=== PATIENT | male | born 1970 | race African-American/Black ===

== ENCOUNTER 2018-07-09 16:44 | Inpatient (IN) | payer SELFPAY ==
--- NOTE | 2018-07-09 17:12 | ER Document Report ---
ED Medical Screen (RME) - General Chief Complaint: Back Pain Stated Complaint: BACK PAIN Time Seen by Provider: 07/09/18 17:04 Mode of Arrival: Wheelchair Information source: Patient Notes: Patient presents emergency department with complaints of severe chest pain radiating to his back. Reports is on the right side of his chest denies radiating to arms or neck. Denies nausea vomiting fever. Denies trauma. Patient reports that this started a few weeks ago he wake up and have difficulty breathing. He reports on the way to work yesterday he had that sharp chest pain that radiated to his back. Patient does smoke marijuana and does cocaine. Reports he did cocaine yesterday to relieve him of the pain. Consulted with Dr. Lion regarding patient's blood pressure. She reports she will care for the patient no blood pressure medication given at this time. I have greeted and performed a rapid initial assessment of this patient. A comprehensive ED assessment and evaluation of the patient, analysis of test results and completion of the medical decision making process will be conducted by additional ED providers. TRAVEL OUTSIDE OF THE [place] IN LAST 30 DAYS: No - Related Data Allergies/Adverse Reactions: No Known Allergies Allergy (Verified 07/09/18 16:47) Past Medical History - Social History Chew tobacco use (# tins/day): No Frequency of alcohol use: Heavy Drug Abuse: Cocaine, Marijuana Family history: Hypertension - Past Medical History Cardiac Medical History: Reports: Hx Hypertension Renal/ Medical History: Denies: Hx Peritoneal Dialysis Physical Exam - Vital signs Vitals: Temp Pulse Resp BP Pulse Ox 98.0 F 97 38 H 227/135 H 94 07/09/18 16:50 07/09/18 16:50 07/09/18 16:50 07/09/18 16:50 07/09/18 16:50 Course - Vital Signs Vital signs: Temp Pulse Resp BP Pulse Ox 98.0 F 97 38 H 227/135 H 94 07/09/18 16:50 07/09/18 16:50 07/09/18 16:50 07/09/18 16:50 07/09/18 16:50 - Laboratory Result Diagrams: 07/09/18 18:45 07/09/18 18:00 Laboratory results interpreted by me: 07/09/18 07/09/18 07/09/18 18:00 18:00 18:45 WBC 11.8 H RBC 4.18 L Hgb 12.3 L Hct 37.3 L RDW 14.7 H Seg Neutrophils % 78.1 H Lymphocytes % 10.2 L Absolute Neutrophils 9.2 H D-Dimer 1.87 H Sodium 136.6 L Potassium 3.4 L Glucose 113 H
--- NOTE | 2018-07-09 18:02 | RADIOLOGY REPORT (SQ) ---
EXAM DESCRIPTION: CHEST 2 VIEWS COMPLETED DATE/TIME: 07/09/2018 5:44 pm REASON FOR STUDY: chest pain radiating to back COMPARISON: 04/19/2009 EXAM PARAMETERS: NUMBER OF VIEWS: two views TECHNIQUE: Digital Frontal and Lateral radiographic views of the chest acquired. RADIATION DOSE: NA LIMITATIONS: none FINDINGS: LUNGS AND PLEURA: Ill-defined opacification in the retrocardiac area on the left. Pulmona ry vascular congestion. Cannot exclude mild pulmonary edema. MEDIASTINUM AND HILAR STRUCTURES: No masses or contour abnormalities. HEART AND VASCULAR STRUCTURES: Cardiomegaly. BONES: No acute findings. HARDWARE: None in the chest. OTHER: No other significant finding. IMPRESSION: Cardiomegaly with mild pulmonary edema. Cannot exclude limited left lower lobe pneumoni a. TECHNICAL DOCUMENTATION: JOB ID: [id number] [employer]- All Rights Reserved Reading location - IP/workstation name: [email or web address]
[2018-07-09] MEDS ORDERED: IPRATROPIUM/ALBUTEROL 0.5-2.5 MG/3 ML AMPUL NEB ONE (18:09)
[2018-07-09] MEDS ORDERED: MORPHINE SULFATE 10 MG/ML INJ IV ONE ×2 (18:10→21:37)
[2018-07-09] MEDS ORDERED: ONDANSETRON HCL INJ/PF 4 MG/2 ML SDV IV ONE (18:10)
[2018-07-09] MEDS ORDERED: METOPROLOL TARTRATE PF/INJ 5 MG/5 ML SDV IV ONE (18:13)
[2018-07-09] MEDS ORDERED: RINGERS SOLUTION,LACTATED 1,000 ML IV ONE (18:13)
[2018-07-09] MEDS ORDERED: LORAZEPAM INJ 2 MG/1 ML VIAL IV ONE ×2 (18:14→18:58)
--- NOTE | 2018-07-09 18:15 | ER Document Report ---
ED General - General Chief Complaint: Back Pain Stated Complaint: BACK PAIN Time Seen by Provider: 07/09/18 17:04 Mode of Arrival: Wheelchair Information source: Patient, [facility] Records Notes: 48-year-old male with hypertension who is noncompliant with his medications presents with sudden onset of right-sided flank pain that occurred yesterday after the patient had a coughing episode. Patient states since that time he has had a sharp pressure-like right-sided flank and right sided back pain. Pain is worse with sitting up, movement and with coughing and deep breathing. Patient denies any recent illness. He does admit to tobacco use, cocaine use yesterday and marijuana use. Patient denies prior similar symptoms, leg swelling, history of PE, DVT. TRAVEL OUTSIDE OF THE [place] IN LAST 30 DAYS: No - HPI Onset: Yesterday Onset/Duration: Sudden Quality of pain: Pressure, Stabbing Severity: Moderate Pain Level: 3 Associated symptoms: Body/muscle aches, Chest pain, Nonproductive cough, Hurts to breath, Shortness of breath, Sweating. denies: Earache, Headache, Leg swelling, Nausea, Vomiting Exacerbated by: Movement, Deep breathing Relieved by: Remaining still Similar symptoms previously: Yes Recently seen / treated by doctor: No - Related Data Allergies/Adverse Reactions: No Known Allergies Allergy (Verified 07/09/18 16:47) Past Medical History - General Information source: Patient - Social History Smoking Status: Current Every Day Smoker Cigarette use (# per day): Yes - 10 Chew tobacco use (# tins/day): No Smoking Education Provided: Yes - Smoking cessation counseling was provided for 4 minutes at the bedside Frequency of alcohol use: Heavy Drug Abuse: Cocaine, Marijuana Lives with: Spouse/Significant other Family History: Reviewed & Not Pertinent Patient has suicidal ideation: No Patient has homicidal ideation: No - Past Medical History Cardiac Medical History: Reports: Hx Hypertension Renal/ Medical History: Denies: Hx Peritoneal Dialysis Review of Systems - Review of Systems Notes: REVIEW OF SYSTEMS: CONSTITUTIONAL : Denies fever, chills, or sweats. Denies recent illness. Denies weight loss, recent hospitalizations. EENT: Denies visual changes, eye pain. Denies sore throat, oral lesions, difficulty swallowing. CARDIOVASCULAR: Denies palpitations. Denies lower extremity edema. RESPIRATORY: Denies cough. Denies wheezing. GASTROINTESTINAL: Denies abdominal pain or distention. Denies nausea, vomiting, or diarrhea. Denies blood in vomitus, stools, or per rectum. Denies black, tarry stools. Denies constipation. GENITOURINARY: Denies difficulty urinating, painful urination, frequency, blood in urine, testicular pain or penile discharge. MUSCULOSKELETAL: Denies neck pain or stiffness. Denies joint pain or swelling. SKIN: Denies rash, lesions or sores. HEMATOLOGIC : Denies easy bruising or bleeding. LYMPHATIC: Denies swollen glands. NEUROLOGICAL: Denies confusion or altered mental status. Denies loss of consciousness. Denies dizziness or lightheadedness. Denies headache. Denies weakness or paralysis. Denies problems difficulty with ambulation, slurred speech. Denies sensory loss, numbness, or tingling. Denies seizures. PSYCHIATRIC: Denies anxiety or stress. Denies depression, suicidal ideation, or Physical Exam - Vital signs Vitals: Temp Pulse Resp BP Pulse Ox 98.0 F 97 38 H 227/135 H 94 07/09/18 16:50 07/09/18 16:50 07/09/18 16:50 07/09/18 16:50 07/09/18 16:50 - Notes Notes: PHYSICAL EXAMINATION: GENERAL: Well-appearing, well-nourished and in no acute distress. HEAD: Atraumatic, normocephalic. EYES: Pupils equal round and reactive to light, extraocular movements intact, sclera anicteric, conjunctiva are normal. ENT: Nares patent, oropharynx clear without exudates. Moist mucous membranes. NECK: Normal range of motion, supple without lymphadenopathy LUNGS: Breath sounds clear to auscultation bilaterally and equal. No wheezes rales or rhonchi. HEART: Regular rate and rhythm without murmurs ABDOMEN: Soft, nontender, nondistended abdomen. No guarding, no rebound. No masses appreciated. Musculoskeletal: Normal range of motion, no pitting or edema. No cyanosis. NEUROLOGICAL: Cranial nerves grossly intact. Normal speech, normal gait. Normal sensory, motor exams PSYCH: Normal mood, normal affect. SKIN: Warm, Dry, normal turgor, no rashes or lesions noted. Course - Re-evaluation Re-evalutation: Laboratory 07/09/18 07/09/18 07/09/18 18:00 18:00 18:00 WBC Cancelled RBC Cancelled Hgb Cancelled Hct Cancelled MCV Cancelled MCH Cancelled MCHC Cancelled RDW Cancelled Plt Count Cancelled Seg Neutrophils % Cancelled Lymphocytes % Cancelled Monocytes % Cancelled Eosinophils % Cancelled Basophils % Cancelled Absolute Neutrophils Cancelled Absolute Lymphocytes Cancelled Absolute Monocytes Cancelled Absolute Eosinophils Cancelled Absolute Basophils Cancelled Platelet Estimate Cancelled D-Dimer Sodium 136.6 L Potassium 3.4 L Chloride 103 Carbon Dioxide 25 Anion Gap 9 BUN 15 Creatinine 0.99 Est GFR ( Amer) > 60 Est GFR (Non-Af Amer) > 60 Glucose 113 H Calcium 9.5 Total Bilirubin 0.6 Direct Bilirubin 0.3 Neonat Total Bilirubin Not Reportable Neonat Direct Bilirubin Not Reportable Neonat Indirect Bili Not Reportable AST 33 ALT 30 Alkaline Phosphatase 107 Creatine Kinase 167 CK-MB (CK-2) 0.75 Troponin I 0.037 Total Protein 7.4 Albumin 3.9 Urine Opiates Screen Urine Methadone Screen Ur Barbiturates Screen Ur Phencyclidine Scrn Ur Amphetamines Screen U Benzodiazepines Scrn Urine Cocaine Screen U Marijuana (THC) Screen Slides for Path Review Cancelled 07/09/18 07/09/18 07/09/18 18:00 18:45 18:45 WBC 11.8 H RBC 4.18 L Hgb 12.3 L Hct 37.3 L MCV 89 MCH 29.5 MCHC 33.0 RDW 14.7 H Plt Count 307 Seg Neutrophils % 78.1 H Lymphocytes % 10.2 L Monocytes % 10.9 Eosinophils % 0.5 Basophils % 0.3 Absolute Neutrophils 9.2 H Absolute Lymphocytes 1.2 Absolute Monocytes 1.3 Absolute Eosinophils 0.1 Absolute Basophils 0.0 Platelet Estimate D-Dimer 1.87 H Sodium Potassium Chloride Carbon Dioxide Anion Gap BUN Creatinine Est GFR ( Amer) Est GFR (Non-Af Amer) Glucose Calcium Total Bilirubin Direct Bilirubin Neonat Total Bilirubin Neonat Direct Bilirubin Neonat Indirect Bili AST ALT Alkaline Phosphatase Creatine Kinase CK-MB (CK-2) Troponin I Total Protein Albumin Urine Opiates Screen NEGATIVE Urine Methadone Screen NEGATIVE Ur Barbiturates Screen NEGATIVE Ur Phencyclidine Scrn NEGATIVE Ur Amphetamines Screen NEGATIVE U Benzodiazepines Scrn NEGATIVE Urine Cocaine Screen UNCONFIRMED POSITIVE U Marijuana (THC) Screen UNCONFIRMED POSITIVE Slides for Path Review 07/09/18 20:40 WBC RBC Hgb Hct MCV MCH MCHC RDW Plt Count Seg Neutrophils % Lymphocytes % Monocytes % Eosinophils % Basophils % Absolute Neutrophils Absolute Lymphocytes Absolute Monocytes Absolute Eosinophils Absolute Basophils Platelet Estimate D-Dimer Sodium Potassium Chloride Carbon Dioxide Anion Gap BUN Creatinine Est GFR ( Amer) Est GFR (Non-Af Amer) Glucose Calcium Total Bilirubin Direct Bilirubin Neonat Total Bilirubin Neonat Direct Bilirubin Neonat Indirect Bili AST ALT Alkaline Phosphatase Creatine Kinase CK-MB (CK-2) Troponin I 0.038 Total Protein Albumin Urine Opiates Screen Urine Methadone Screen Ur Barbiturates Screen Ur Phencyclidine Scrn Ur Amphetamines Screen U Benzodiazepines Scrn Urine Cocaine Screen U Marijuana (THC) Screen Slides for Path Review Chest X-Ray 07/09/18 17:08 IMPRESSION: Cardiomegaly with mild pulmonary edema. Cannot exclude limited left lower lobe pneumonia. Chest/Abdomen CTA 07/09/18 20:07 IMPRESSION: 1. No acute pulmonary embolism. 2. Trace right pleural effusion with compressive atelectasis in the right lower lobe. 3. Cardiomegaly with small pericardial effusion. 07/09/18 22:34 48-year-old male presents with right-sided chest pain that started 1 day prior to arrival. Vital signs reviewed and patient has markedly elevated blood pressure. Patient does not appear toxic or dehydrated. He is in no acute distress. EKG was obtained which shows the patient be in sinus rhythm at a rate of 87. Left ventricular hypertrophy is present. Patient does have T wave inversions in leads to be 5, V6 and lead I. Patient does admit to recent cocaine use. Troponin is 0.037, delta troponin 0 0.038. CTA was obtained due to the patient's pain with inspiration, this showed no evidence of pulmonary embolism but did show a right pleural effusion and cardiomegaly with a small pericardial effusion. Patient did receive clonidine for his blood pressure with minimal improvement. Patient did receive Ativan, morphine for pain. On reevaluation he states the pain has improved but is still present. He is agreeable with admission. Patient will be admitted by Dr. Evans for observation on telemetry. - Vital Signs Vital signs: Temp Pulse Resp BP Pulse Ox 98.0 F 97 39 H 200/119 H 89 L 07/09/18 16:50 07/09/18 16:50 07/09/18 21:20 07/09/18 20:30 07/09/18 21:20 - Laboratory Result Diagrams: 07/09/18 18:45 07/09/18 18:00 Laboratory results interpreted by me: 07/09/18 07/09/18 07/09/18 18:00 18:00 18:45 WBC 11.8 H RBC 4.18 L Hgb 12.3 L Hct 37.3 L RDW 14.7 H Seg Neutrophils % 78.1 H Lymphocytes % 10.2 L Absolute Neutrophils 9.2 H D-Dimer 1.87 H Sodium 136.6 L Potassium 3.4 L Glucose 113 H - Diagnostic Test Radiology reviewed: Image reviewed, Reports reviewed - EKG Interpretation by Me EKG shows normal: Sinus rhythm Voltage: Consistant with LVH - T wave inversion noted When compared to previous EKG there are: Previous EKG unavailable Critical Care Note - Critical Care Note Total time excluding time spent on procedures (mins): 35 - Minutes of critical care time spent in direct contact evaluating and reevaluating the patient, treating symptoms, reviewing labs and studies and speaking with family and consultants excluding any procedures Discharge - Discharge Clinical Impression: Pericardial effusion, Pleural effusion, Cocaine use, Marijuana use, Noncompliance with medication regimen Chest pain Qualifiers: Chest pain type: unspecified Qualified Code(s): R07.9 - Chest pain, unspecified Hypertension Qualifiers: Hypertension type: unspecified Qualified Code(s): I10 - Essential (primary) hypertension Condition: Good Disposition: ADMITTED OBSERVATION Admitting Provider: Nathan (Hospitalist) Unit Admitted: Telemetry
[2018-07-09 18:26] LABS: ALANINE AMINOTRANSFERASE 30 U/L (21-72); ALBUMIN 3.9 g/dL (3.5-5.0); ALKALINE PHOSPHATASE 107 U/L (38-126); ANION GAP 9 (5-19); ASPARTATE AMINO TRANSFERASE 33 U/L (17-59); BILIRUBIN,DIRECT 0.3 mg/dL (0.0-0.4); BILIRUBIN,TOTAL 0.6 mg/dL (0.2-1.3); BLOOD UREA NITROGEN 15 mg/dL (7-20); CALCIUM 9.5 mg/dL (8.4-10.2); CARBON DIOXIDE 25 mmol/L (22-30); CHLORIDE 103 mmol/L (98-107); CREATINE KINASE 167 U/L (55-170); GLUCOSE 113 mg/dL (75-110); POTASSIUM 3.4 mmol/L (3.6-5.0); SODIUM 136.6 mmol/L (137-145); TOTAL PROTEIN 7.4 g/dL (6.3-8.2)
[2018-07-09 18:38] LABS: CREATINE KINASE MB 0.75 ng/mL (<4.55)
[2018-07-09 18:40] LABS: TROPONIN I 0.037 ng/mL
[2018-07-09 19:05] LABS: ABSOLUTE EOSINOPHILS # (AUTO) 0.1 10^3/uL (0.0-0.6); ABSOLUTE LYMPHOCYTES (AUTO) 1.2 10^3/uL (0.5-4.7); ABSOLUTE MONOCYTES (AUTO) 1.3 10^3/uL (0.1-1.4); ABSOLUTE NEUT (AUTO) 9.2 10^3/uL (1.7-8.2); BASOPHILS % (AUTO) 0.3 % (0-2); EOSINOPHILS % (AUTO) 0.5 % (0-6); HEMATOCRIT 37.3 % (37.9-51.0); HEMOGLOBIN 12.3 g/dL (13.5-17.0); LYMPHOCYTES % (AUTO) 10.2 % (13-45); MEAN CORPUSCULAR HEMOGLOBIN 29.5 pg (27.0-33.4); MEAN CORPUSCULAR VOLUME 89 fl (80-97); MONOCYTES % (AUTO) 10.9 % (3-13); PLATELET COUNT 307 10^3/uL (150-450); RED BLOOD COUNT 4.18 10^6/uL (4.35-5.55); RED CELL DISTRIBUTION WIDTH 14.7 % (11.5-14.0); SEGMENTED NEUTROPHILS % (AUTO) 78.1 % (42-78); TOTAL CELLS COUNTED % (AUTO) 100 %; WHITE BLOOD COUNT 11.8 10^3/uL (4.0-10.5)
[2018-07-09 19:24] LABS: URINE AMPHETAMINES SCREEN NEGATIVE; URINE BARBITURATES SCREEN NEGATIVE; URINE BENZODIAZEPINES SCREEN NEGATIVE; URINE COCAINE SCREEN UNCONFIRMED POSITIVE; URINE MARIJUANA (THC) SCREEN UNCONFIRMED POSITIVE; URINE METHADONE SCREEN NEGATIVE; URINE PHENCYCLIDINE SCREEN NEGATIVE
[2018-07-09] MEDS ORDERED: CLONIDINE HCL 0.1 MG TABLET PO ONE (21:38)
--- NOTE | 2018-07-09 21:59 | RADIOLOGY REPORT (SQ) ---
CT CHEST ANGIOGRAPHY WITHOUT THEN WITH IV CONTRAST HISTORY: Shortness of breath. COMPARISON: None. TECHNIQUE: CT angiogram of the chest with IV contrast. 3-D MIP images were obtained in coronal and sagittal reconstructions. This exam was performed according to our departmental dose-optimization program, which includes automated exposure control, adjustment of the mA and/or kV according to patient size and/or use of iterative reconstruction technique. FINDINGS: No filling defects are identified in the pulmonary trunk, main left and right pulmonary arteries, or the segmental branches. No aortic aneurysm or dissection is seen. The thyroid gland is normal. No mediastinal, hilar, or axillary adenopathy is seen. The heart size is enlarged with a small pericardial effusion. There is a trace right pleural effusion with adjacent compressive atelectasis. There is also atelectasis/scarring at the left lung base. No pneumothorax is seen. The visualized upper abdomen demonstrates no acute findings. The osseous structures are intact. IMPRESSION: 1. No acute pulmonary embolism. 2. Trace right pleural effusion with compressive atelectasis in the right lower lobe. 3. Cardiomegaly with small pericardial effusion.
[2018-07-09] MEDS ORDERED: MAG HYDROX/AL HYDROX/SIMETH SUSP 30 ML UDCUP PO PRN (22:32)
--- NOTE | 2018-07-09 23:54 | EKG REPORT ---
SEVERITY:- ABNORMAL ECG - SINUS RHYTHM BELL, CONSIDER BIATRIAL ABNORMALITIES LEFT VENTRICULAR HYPERTROPHY ABNORMAL T, PROBABLE ISCHEMIA, ANT-LAT LEADS : Confirmed by: Gail Taylor 09-Jul-2018 23:53:31
--- NOTE | 2018-07-10 00:10 | PDOC H&P ---
History of Present Illness Admission Date/PCP: 07/09/18 22:47 Patient complains of: Chest pain History of Present Illness: HERACLIO HERRERA is a 48 year old male with past medical history of untreated hypertension, tobacco and alcohol dependence. Patient presents with 12 hours of sharp stabbing retrosternal chest pain radiating to the back associated with shortness of breath occurring moments after smoking crack cocaine. His symptoms of persisted prompting evaluation in the emergency room was found to have hypertensive urgency in the 200 systolic range, CT with small pericardial and pleural effusion. He receives clonidine, Ativan and referred to the hospitalist for admission. Patient denies current chest pain. Past Medical History Cardiac Medical History: Reports: Hypertension Psychiatric Medical History: Reports: Alcohol Dependency, Substance Abuse, Tobacco Dependency Social History Lives with: Spouse/Significant other Smoking Status: Current Every Day Smoker Frequency of Alcohol Use: Heavy - Minimum 48 ounces of malt liquor per day Drugs: Cocaine, Marijuana - Advance Directive Resuscitation Status: Full Code Family History Family History: CAD, Hypertension Parental Family History Reviewed: Yes Children Family History Reviewed: Yes Sibling(s) Family History Reviewed.: Yes Medication/Allergy Home Medications: Lisinopril/Hydrochlorothiazide [Lisinopril-Hctz 20-12.5 mg Tab] 1 each PO DAILY #60 tablet 04/28/13 Allergies/Adverse Reactions: No Known Allergies Allergy (Verified 07/09/18 16:47) Review of Systems Constitutional: ABSENT: chills, fever(s), headache(s), weight gain, weight loss Eyes: ABSENT: visual disturbances Ears: ABSENT: hearing changes Cardiovascular: ABSENT: chest pain, dyspnea on exertion, edema, orthropnea, palpitations Respiratory: ABSENT: cough, hemoptysis Gastrointestinal: ABSENT: abdominal pain, constipation, diarrhea, hematemesis, hematochezia, nausea, vomiting Genitourinary: ABSENT: dysuria, hematuria Musculoskeletal: ABSENT: joint swelling Integumentary: ABSENT: rash, wounds Neurological: ABSENT: abnormal gait, abnormal speech, confusion, dizziness, focal weakness, syncope Psychiatric: ABSENT: anxiety, depression, homidical ideation, suicidal ideation Endocrine: ABSENT: cold intolerance, heat intolerance, polydipsia, polyuria Hematologic/Lymphatic: ABSENT: easy bleeding, easy bruising Physical Exam Vital Signs: Temp Pulse Resp BP Pulse Ox 98.0 F 97 39 H 200/119 H 89 L 07/09/18 16:50 07/09/18 16:50 07/09/18 21:20 07/09/18 20:30 07/09/18 21:20 Intake & Output 07/08/18 07/09/18 07/10/18 11:59 11:59 11:59 Intake Total 1000 Output Total 200 Balance 800 Weight 94.5 kg General appearance: PRESENT: no acute distress, well-developed, well-nourished Head exam: PRESENT: atraumatic, normocephalic Eye exam: PRESENT: conjunctiva pink, EOMI, PERRLA. ABSENT: scleral icterus Ear exam: PRESENT: normal external ear exam Mouth exam: PRESENT: moist, tongue midline Neck exam: ABSENT: carotid bruit, JVD, lymphadenopathy, thyromegaly Respiratory exam: PRESENT: clear to auscultation dewayne. ABSENT: rales, rhonchi, wheezes Cardiovascular exam: PRESENT: gallop, RRR, +S1, +S2. ABSENT: diastolic murmur, rubs Pulses: PRESENT: normal dorsalis pedis pul Vascular exam: PRESENT: normal capillary refill GI/Abdominal exam: PRESENT: normal bowel sounds, soft. ABSENT: distended, guarding, mass, organolmegaly, rebound, tenderness Rectal exam: PRESENT: deferred Extremities exam: PRESENT: full ROM. ABSENT: calf tenderness, clubbing, pedal edema Neurological exam: PRESENT: alert, awake, oriented to person, oriented to place, oriented to time, oriented to situation, CN II-XII grossly intact. ABSENT: motor sensory deficit Psychiatric exam: PRESENT: anxious, normal mood. ABSENT: homicidal ideation, suicidal ideation Skin exam: PRESENT: dry, intact, warm. ABSENT: cyanosis, rash Results Laboratory Results: 07/09/18 18:45 07/09/18 18:00 07/09/18 07/09/18 07/09/18 18:00 18:00 18:45 WBC Cancelled 11.8 H RBC Cancelled 4.18 L Hgb Cancelled 12.3 L Hct Cancelled 37.3 L MCV Cancelled 89 MCH Cancelled 29.5 MCHC Cancelled 33.0 RDW Cancelled 14.7 H Plt Count Cancelled 307 Seg Neutrophils % Cancelled 78.1 H Lymphocytes % Cancelled 10.2 L Monocytes % Cancelled 10.9 Eosinophils % Cancelled 0.5 Basophils % Cancelled 0.3 Absolute Neutrophils Cancelled 9.2 H Absolute Lymphocytes Cancelled 1.2 Absolute Monocytes Cancelled 1.3 Absolute Eosinophils Cancelled 0.1 Absolute Basophils Cancelled 0.0 Sodium 136.6 L Potassium 3.4 L Chloride 103 Carbon Dioxide 25 Anion Gap 9 BUN 15 Creatinine 0.99 Est GFR ( Amer) > 60 Est GFR (Non-Af Amer) > 60 Glucose 113 H Calcium 9.5 Magnesium Total Bilirubin 0.6 AST 33 ALT 30 Alkaline Phosphatase 107 Total Protein 7.4 Albumin 3.9 07/09/18 20:40 WBC RBC Hgb Hct MCV MCH MCHC RDW Plt Count Seg Neutrophils % Lymphocytes % Monocytes % Eosinophils % Basophils % Absolute Neutrophils Absolute Lymphocytes Absolute Monocytes Absolute Eosinophils Absolute Basophils Sodium Potassium Chloride Carbon Dioxide Anion Gap BUN Creatinine Est GFR ( Amer) Est GFR (Non-Af Amer) Glucose Calcium Magnesium 1.9 Total Bilirubin AST ALT Alkaline Phosphatase Total Protein Albumin 07/09/18 07/09/18 07/09/18 18:00 18:00 20:40 Creatine Kinase 167 CK-MB (CK-2) 0.75 Troponin I 0.037 0.038 07/09/18 20:40 Creatine Kinase 129 CK-MB (CK-2) Troponin I Impressions: Chest X-Ray 07/09/18 17:08 IMPRESSION: Cardiomegaly with mild pulmonary edema. Cannot exclude limited left lower lobe pneumonia. Chest/Abdomen CTA 07/09/18 20:07 IMPRESSION: 1. No acute pulmonary embolism. 2. Trace right pleural effusion with compressive atelectasis in the right lower lobe. 3. Cardiomegaly with small pericardial effusion. Assessment and Plan - Diagnosis (1) Hypertensive urgency Is this a current diagnosis for this admission?: Yes Plan: Secondary to cocaine use, clonidine and Valium initiated. PRN hydralazine (2) Chest pain Qualifiers: Chest pain type: unspecified Qualified Code(s): R07.9 - Chest pain, unspecified Is this a current diagnosis for this admission?: Yes Plan: Most likely secondary to cocaine, differential of pericarditis given pericardial effusion, follow-up ESR, consider echo. (3) Cocaine use Is this a current diagnosis for this admission?: Yes Plan: Supportive care with clonidine and Valium (4) Pericardial effusion Is this a current diagnosis for this admission?: Yes Plan: Consider 2D echo (5) Noncompliance with medication regimen Is this a current diagnosis for this admission?: Yes Plan: Education - Time Time Spent with patient: 25-34 minutes - Inpatient Certification Medical Necessity: Need Close Monitoring Due to Risk of Patient Decompensation
[2018-07-10] MEDS: DIAZEPAM 2 MG TABLET PO SCH ×3 (05:14→21:24)
[2018-07-10] MEDS: CLONIDINE HCL 0.2 MG TABLET PO SCH ×3 (05:14→21:24)
[2018-07-10 06:53] LABS: ABSOLUTE EOSINOPHILS # (AUTO) 0.1 10^3/uL (0.0-0.6); ABSOLUTE MONOCYTES (AUTO) 1.2 10^3/uL (0.1-1.4); ABSOLUTE NEUT (AUTO) 8.9 10^3/uL (1.7-8.2); BASOPHILS % (AUTO) 0.2 % (0-2); EOSINOPHILS % (AUTO) 0.6 % (0-6); HEMATOCRIT 33.8 % (37.9-51.0); HEMOGLOBIN 11.3 g/dL (13.5-17.0); LYMPHOCYTES % (AUTO) 9.1 % (13-45); MEAN CORPUSCULAR HEMOGLOBIN 29.7 pg (27.0-33.4); MEAN CORPUSCULAR HGB CONC 33.4 g/dL (32.0-36.0); MEAN CORPUSCULAR VOLUME 89 fl (80-97); MONOCYTES % (AUTO) 11.1 % (3-13); PLATELET COUNT 307 10^3/uL (150-450); RED CELL DISTRIBUTION WIDTH 14.8 % (11.5-14.0); TOTAL CELLS COUNTED % (AUTO) 100 %; WHITE BLOOD COUNT 11.3 10^3/uL (4.0-10.5)
[2018-07-10 07:15] LABS: ANION GAP 9 (5-19); BLOOD UREA NITROGEN 13 mg/dL (7-20); CARBON DIOXIDE 27 mmol/L (22-30); CHLORIDE 102 mmol/L (98-107); GLUCOSE 109 mg/dL (75-110); SODIUM 138.2 mmol/L (137-145)
[2018-07-10] MEDS ORDERED: HYDRALAZINE HCL INJ/PF 20 MG/1 ML SDV IV PRN (08:23)
[2018-07-10] MEDS ORDERED: POTASSIUM CHLORIDE 10 MEQ CAPSULE.ER PO ONE ×2 (09:00→18:00)
[2018-07-10] MEDS: POTASSI CL 20 MEQ/50 ML RIDER 20 MEQ/50 ML RTUPB IV SCH ×2 (09:02→11:43)
[2018-07-10] MEDS: HYDROCHLOROTHIAZIDE 12.5 MG TABLET PO SCH (09:12)
[2018-07-10] MEDS: AMLODIPINE BESYLATE 5 MG TABLET PO SCH (09:12)
[2018-07-10] MEDS: LISINOPRIL 10 MG TABLET PO SCH (09:13)
[2018-07-10] MEDS ORDERED: (PENDING PHARMACY ID) (Lisinopril/Hydrochlorothiazide [Lisinopril-Hctz 20-12.5 Mg Tab] 1 E PO SCH (10:00)
--- NOTE | 2018-07-10 17:45 | PDOC PROGRESS REPORT ---
Subjective Progress Note for:: 07/10/18 Subjective:: This is a 48 year old male with a past medical history of untreated hypertension, tobacco and alcohol dependence who presented with acute chest pain radiating to the back associated with shortness of breath after smoking crack cocaine. In the ER, he was noted to be severely hypertensive. No acute event overnight. This morning, he appears comfortable and is currently chest pain free. He says his SOB has also improved. Blood pressures have slightly improved but still elevated in the 170 systolic. Reason For Visit: HTN URGENCY, CP, COCAINE INTOX Physical Exam Vital Signs: Temp Pulse Resp BP Pulse Ox 99.3 F 84 16 178/117 H 100 07/10/18 05:00 07/10/18 14:00 07/10/18 05:00 07/10/18 05:00 07/10/18 05:00 Intake & Output 07/09/18 07/10/18 07/11/18 06:59 06:59 06:59 Intake Total 1000 100 Output Total 200 Balance 800 100 Weight 208 lb 5.389 oz General appearance: PRESENT: no acute distress, well-developed, well-nourished Head exam: PRESENT: atraumatic, normocephalic Eye exam: PRESENT: conjunctiva pink, EOMI, PERRLA. ABSENT: scleral icterus Ear exam: PRESENT: normal external ear exam Mouth exam: PRESENT: moist, tongue midline Neck exam: ABSENT: carotid bruit, JVD, lymphadenopathy, thyromegaly Respiratory exam: PRESENT: clear to auscultation dewayne. ABSENT: rales, rhonchi, wheezes Cardiovascular exam: PRESENT: RRR. ABSENT: diastolic murmur, rubs, systolic murmur Pulses: PRESENT: normal dorsalis pedis pul Vascular exam: PRESENT: normal capillary refill GI/Abdominal exam: PRESENT: normal bowel sounds, soft. ABSENT: distended, guarding, mass, organolmegaly, rebound, tenderness Rectal exam: PRESENT: deferred Extremities exam: PRESENT: full ROM. ABSENT: calf tenderness, clubbing, pedal edema Neurological exam: PRESENT: alert, awake, oriented to person, oriented to place, oriented to time, oriented to situation, CN II-XII grossly intact. ABSENT: motor sensory deficit Results Laboratory Results: 07/10/18 05:04 07/10/18 16:08 07/09/18 07/09/1807/09/19 18:00 18:00 18:45 WBC Cancelled 11.8 H RBC Cancelled 4.18 L Hgb Cancelled 12.3 L Hct Cancelled 37.3 L MCV Cancelled 89 MCH Cancelled 29.5 MCHC Cancelled 33.0 RDW Cancelled 14.7 H Plt Count Cancelled 307 Seg Neutrophils % Cancelled 78.1 H Lymphocytes % Cancelled 10.2 L Monocytes % Cancelled 10.9 Eosinophils % Cancelled 0.5 Basophils % Cancelled 0.3 Absolute Neutrophils Cancelled 9.2 H Absolute Lymphocytes Cancelled 1.2 Absolute Monocytes Cancelled 1.3 Absolute Eosinophils Cancelled 0.1 Absolute Basophils Cancelled 0.0 Sodium 136.6 L Potassium 3.4 L Chloride 103 Carbon Dioxide 25 Anion Gap 9 BUN 15 Creatinine 0.99 Est GFR ( Amer) > 60 Est GFR (Non-Af Amer) > 60 Glucose 113 H Calcium 9.5 Magnesium Total Bilirubin 0.6 AST 33 ALT 30 Alkaline Phosphatase 107 Total Protein 7.4 Albumin 3.9 07/09/18 07/10/18 07/10/18 20:40 05:04 05:04 WBC 11.3 H RBC 3.80 L Hgb 11.3 L Hct 33.8 L MCV 89 MCH 29.7 MCHC 33.4 RDW 14.8 H Plt Count 307 Seg Neutrophils % 79.0 H Lymphocytes % 9.1 L Monocytes % 11.1 Eosinophils % 0.6 Basophils % 0.2 Absolute Neutrophils 8.9 H Absolute Lymphocytes 1.0 Absolute Monocytes 1.2 Absolute Eosinophils 0.1 Absolute Basophils 0.0 Sodium 138.2 Potassium 3.0 L* Chloride 102 Carbon Dioxide 27 Anion Gap 9 BUN 13 Creatinine 1.04 Est GFR ( Amer) > 60 Est GFR (Non-Af Amer) > 60 Glucose 109 Calcium 9.0 Magnesium 1.9 Total Bilirubin AST ALT Alkaline Phosphatase Total Protein Albumin 07/10/18 07/10/18 05:04 16:08 WBC RBC Hgb Hct MCV MCH MCHC RDW Plt Count Seg Neutrophils % Lymphocytes % Monocytes % Eosinophils % Basophils % Absolute Neutrophils Absolute Lymphocytes Absolute Monocytes Absolute Eosinophils Absolute Basophils Sodium Potassium 3.4 L Chloride Carbon Dioxide Anion Gap BUN Creatinine Est GFR ( Amer) Est GFR (Non-Af Amer) Glucose Calcium Magnesium 2.0 Total Bilirubin AST ALT Alkaline Phosphatase Total Protein Albumin 07/09/18 07/09/18 07/09/18 18:00 18:00 20:40 Creatine Kinase 167 CK-MB (CK-2) 0.75 Troponin I 0.037 0.038 07/09/18 07/10/18 20:40 05:04 Creatine Kinase 129 CK-MB (CK-2) Troponin I 0.042 Impressions: Chest X-Ray 07/09/18 17:08 IMPRESSION: Cardiomegaly with mild pulmonary edema. Cannot exclude limited left lower lobe pneumonia. Chest/Abdomen CTA 07/09/18 20:07 IMPRESSION: 1. No acute pulmonary embolism. 2. Trace right pleural effusion with compressive atelectasis in the right lower lobe. 3. Cardiomegaly with small pericardial effusion. Assessment and Plan - Diagnosis (1) Chest pain Qualifiers: Chest pain type: unspecified Qualified Code(s): R07.9 - Chest pain, unspecified Is this a current diagnosis for this admission?: Yes Plan: Likely related to cocaine use. EKG shows some T wave inversions. Echo pending. (2) Hypertensive urgency Is this a current diagnosis for this admission?: Yes Plan: Continue amlodipine, lisinopril, and HCTZ. - Time Time Spent with patient: 25-34 minutes
[2018-07-10] MEDS: ACETAMINOPHEN 325 MG TABLET PO PRN (21:24)
[2018-07-11] MEDS: ACETAMINOPHEN 325 MG TABLET PO PRN (03:22)
[2018-07-11] MEDS: DIAZEPAM 2 MG TABLET PO SCH ×3 (05:10→21:24)
[2018-07-11] MEDS: CLONIDINE HCL 0.2 MG TABLET PO SCH ×3 (05:10→21:24)
[2018-07-11 06:42] LABS: ANION GAP 10 (5-19); BLOOD UREA NITROGEN 17 mg/dL (7-20); CARBON DIOXIDE 23 mmol/L (22-30); CHLORIDE 104 mmol/L (98-107); GLUCOSE 117 mg/dL (75-110); POTASSIUM 3.4 mmol/L (3.6-5.0); SODIUM 137.1 mmol/L (137-145)
[2018-07-11] MEDS: AMLODIPINE BESYLATE 5 MG TABLET PO SCH (09:10)
[2018-07-11] MEDS: LISINOPRIL 10 MG TABLET PO SCH (09:10)
[2018-07-11] MEDS: HYDROCHLOROTHIAZIDE 12.5 MG TABLET PO SCH (09:11)
[2018-07-11] MEDS ORDERED: NITROGLYCERIN 0.4 MG/TAB 25 TAB/BOTTLE ONE (10:03)
[2018-07-11] MEDS: ALBUTEROL SULFATE 0.083% NEB 2.5 MG/3 ML AMPUL NEB PRN (10:48)
[2018-07-11] MEDS ORDERED: LIDOCAINE 5% (700 MG) TRANSDERMAL ADH..PATCH TP ONE (12:30)
[2018-07-11] MEDS ORDERED: KETOROLAC TROMETHAMINE INJ/PF 30 MG/1 ML SDV IV PRN (14:47)
[2018-07-11 15:28] LABS: APPEARANCE,URINE CLEAR; BILIRUBIN,URINE NEGATIVE (NEGATIVE); COLOR,URINE YELLOW; GLUCOSE, URINE NEGATIVE (NEGATIVE); KETONES,URINE NEGATIVE (NEGATIVE); LEUKOCYTE ESTERASE,URINE NEGATIVE (NEGATIVE); NITRITE,URINE NEGATIVE (NEGATIVE); PROTEIN,URINE NEGATIVE (NEGATIVE); URINE SPECIFIC GRAVITY 1.016
[2018-07-11] MEDS ORDERED: POTASSIUM CHLORIDE 10 MEQ CAPSULE.ER PO ONE (15:30)
--- NOTE | 2018-07-11 17:39 | PDOC PROGRESS REPORT ---
Subjective Progress Note for:: 07/11/18 Subjective:: This is a 48 year old male with a past medical history of untreated hypertension, tobacco and alcohol dependence who presented with acute chest pain radiating to the back associated with shortness of breath after smoking crack cocaine. In the ER, he was noted to be severely hypertensive. 07/10: This morning, he appears comfortable and is currently chest pain free. He says his SOB has also improved. Blood pressures have slightly improved but still elevated in the 170 systolic. 07/11: Patient had fever early this morning. He complains of persistent right sided flank/subcostal pain. Denies chest pain or SOB. Reason For Visit: HTN URGENCY, CP, COCAINE INTOX Physical Exam Vital Signs: Temp Pulse Resp BP Pulse Ox 99.6 F 83 22 H 175/109 H 96 07/11/18 04:23 07/11/18 14:00 07/11/18 10:50 07/11/18 03:23 07/11/18 10:50 Intake & Output 07/10/18 07/11/18 07/12/18 06:59 06:59 06:59 Intake Total 1000 580 658 Output Total 200 Balance 800 580 658 Weight 208 lb 5.389 oz 208 lb 5.389 oz General appearance: PRESENT: no acute distress, well-developed, well-nourished Head exam: PRESENT: atraumatic, normocephalic Eye exam: PRESENT: conjunctiva pink, EOMI, PERRLA. ABSENT: scleral icterus Ear exam: PRESENT: normal external ear exam Mouth exam: PRESENT: moist, tongue midline Neck exam: ABSENT: carotid bruit, JVD, lymphadenopathy, thyromegaly Respiratory exam: PRESENT: clear to auscultation dewayne. ABSENT: rales, rhonchi, wheezes Cardiovascular exam: PRESENT: RRR. ABSENT: diastolic murmur, rubs, systolic murmur Pulses: PRESENT: normal dorsalis pedis pul GI/Abdominal exam: PRESENT: normal bowel sounds, soft. ABSENT: distended, guarding, mass, organolmegaly, rebound, tenderness Rectal exam: PRESENT: deferred Musculoskeletal exam: PRESENT: other - tenderness on palpation of right flank area Neurological exam: PRESENT: alert, awake, oriented to person, oriented to place, oriented to time, oriented to situation, CN II-XII grossly intact. ABSENT: motor sensory deficit Results Laboratory Results: 07/10/18 05:04 07/11/18 05:02 07/11/18 07/11/18 05:02 14:56 Sodium 137.1 Potassium 3.4 L Chloride 104 Carbon Dioxide 23 Anion Gap 10 BUN 17 Creatinine 1.05 Est GFR ( Amer) > 60 Est GFR (Non-Af Amer) > 60 Glucose 117 H Calcium 9.0 Urine Color YELLOW Urine Appearance CLEAR Urine pH 7.0 Ur Specific [place] 1.016 Urine Protein NEGATIVE Urine Glucose (UA) NEGATIVE Urine Ketones NEGATIVE Urine Blood SMALL H Urine Nitrite NEGATIVE Ur Leukocyte Esterase NEGATIVE Urine WBC (Auto) 0 Urine RBC (Auto) 8 07/09/18 07/09/18 07/09/18 18:00 18:00 20:40 Creatine Kinase 167 CK-MB (CK-2) 0.75 Troponin I 0.037 0.038 07/09/18 07/10/18 07/11/18 20:40 05:04 13:30 Creatine Kinase 129 CK-MB (CK-2) Troponin I 0.042 0.022 Impressions: Chest X-Ray 07/09/18 17:08 IMPRESSION: Cardiomegaly with mild pulmonary edema. Cannot exclude limited left lower lobe pneumonia. Chest/Abdomen CTA 07/09/18 20:07 IMPRESSION: 1. No acute pulmonary embolism. 2. Trace right pleural effusion with compressive atelectasis in the right lower lobe. 3. Cardiomegaly with small pericardial effusion. Assessment and Plan - Diagnosis (1) Chest pain Qualifiers: Chest pain type: unspecified Qualified Code(s): R07.9 - Chest pain, unspecified Is this a current diagnosis for this admission?: Yes Plan: Likely related to cocaine use. EKG shows some T wave inversions. Echo pending. Mildly elevated troponin possibly from demand from cocaine use. 07/11: Resolved. (2) Hypertensive urgency Is this a current diagnosis for this admission?: Yes Plan: Continue amlodipine, lisinopril, and HCTZ. (3) Elevated troponin Is this a current diagnosis for this admission?: Yes Plan: Mildly elevated troponin possibly from demand from cocaine use. 07/11: Troponin has significantly trended down. (4) Fever Is this a current diagnosis for this admission?: Yes Plan: Will check a UA and blood culture. Unable to appreciate a murmur on exam. Will empirically start Rocephin until cultures are back. (5) Hypokalemia Is this a current diagnosis for this admission?: Yes Plan: Replace with PO Potassium. - Time Time Spent with patient: 25-34 minutes
--- NOTE | 2018-07-11 17:57 | EKG REPORT ---
SEVERITY:- ABNORMAL ECG - SINUS RHYTHM LEFT ATRIAL ABNORMALITY LEFT VENTRICULAR HYPERTROPHY ABNORMAL T, PROBABLE ISCHEMIA, LATERAL LEADS ANTERIOR ST ELEVATION, PROBABLY DUE TO LVH : Confirmed by: Gail Taylor 11-Jul-2018 17:57:12
[2018-07-11] MEDS ORDERED: CEFTRIAXONE 1 GM/D5W RTU 1 GM/50 ML RTUPB IV SCH (18:00)
[2018-07-11] MEDS ORDERED: MORPHINE SULFATE 10 MG/ML INJ IV PRN (18:44)
[2018-07-11] MEDS: CEFTRIAXONE SODIUM 1,000 MG in DEXTROSE 5%-WATER 50 ML IV SCH (19:18)
--- NOTE | 2018-07-11 20:59 | RADIOLOGY REPORT (SQ) ---
EXAM DESCRIPTION: CT ABDOMEN PELVIS WITHOUT IV CONTRAST COMPLETED DATE/TME: 07/11/2018 17:33 CLINICAL HISTORY: 48 years, Male, persistent flank pain, fever This exam was performed according to our departmental dose-optimization program which includes automated exposure control, adjustment of the mA and/or kVp according to patient size and/or use of iterative reconstruction technique where applicable. FINDINGS: Visualized lung bases demonstrate mild right pleural effusion and small left pleural effusion. Mild pericardial effusion. Mild bibasilar atelectatic changes. Liver, spleen, pancreas, gallbladder, adrenal glands and kidneys are within normal limits. No hydronephrosis. No biliary dilatation. No dilated loops of bowel to suggest obstruction. Mild amount of stool in the colon. Bladder is unremarkable. No abdominal or pelvic lymphadenopathy. Abdominal aorta is moderately calcified without aneurysm. IMPRESSION: No acute disease. Mild right pleural effusion. Mild pericardial effusion.
[2018-07-11] MEDS: KETOROLAC TROMETHAMINE INJ/PF 30 MG/1 ML SDV IV PRN (21:25)
--- NOTE | 2018-07-11 22:31 | XCELERA REPORT ---
[address] [address] Transthoracic Echocardiogram Report Name: HERACLIO HERRERA Age: 48 yrs Gender: Male : 1970 Patient Status: Inpatient Patient Location: [address] [place], [place] [id number] Study Date: 07/10/2018 10:20 AM Height: 69 in Weight: 208 lb BSA: 2.1 m2 Procedure: A two-dimensional transthoracic echocardiogram with color flow and Doppler was performed. Study Quality: Fair. Reason For Study: exertionalCP/SOB,pericardial eff,cocaine [id number] History: CHEST PAIN / SOB. Ordering Physician: COBY DANIEL Performed By: Tracy Deleon Interpretation Summary The left ventricle is normal in size. There is mild to moderate concentric left ventricular hypertrophy. LV EF is 60% The left ventricular ejection fraction is within normal limits. Doppler measurements suggest normal left ventricular diastolic function The left ventricular wall motion is normal. There is no thrombus. There is no ASD / VSD 0r PFO seen. The right ventricle is normal in size and function. The right atrium is normal. The left atrium is mildly dilated. There is no evidence of mitral valve prolapse. There is no vegetation seen on the mitral valve. There is no mitral valve stenosis. There is a mild amount of mitral regurgitation There is no aortic valvular vegetation. There is a peak gradient of 20 mm of Hg. There is mild aortic stenosis No hemodynamically significant valvular aortic stenosis. There is no LVOT obstruction. There is a mild amount of aortic regurgitation There is no tricuspid stenosis. There is a mild amount of tricuspid regurgitation There is mild pulmonary hypertension by echo RVSP is 32 to 37 mm of Hg , with RA mean of 5 to 10. There is no pulmonic valvular stenosis. There is a trace amount of pulmonic regurgitation The aortic root is normal size. The inferior vena cava appeared normal and decreased > 50% with respiration (RAP 5-10 mmHg) Minimal pericardial effusion. There are no echocardiographic or Doppler indications for cardiac tamponade MMode/2D Measurements & Calculations RVDd: 3.3 cm LVIDd: 6.1 cm FS: 36.8 % Ao root diam: 2.9 cm IVSd: 1.2 cm LVIDs: 3.9 cm EDV(Teich): LVPWd: 1.4 cm 188.6 ml Ao root area: ESV(Teich): 6.4 cm2 64.8 ml LA dimension: EF(Teich): 65.7 % 4.4 cm LVLd ap4: 9.3 cm SV(MOD-sp4): EDV(MOD-sp4): 78.0 ml 128.0 ml LVLs ap4: 7.5 cm ESV(MOD-sp4): 50.0 ml EF(MOD-sp4): 60.9 % Doppler Measurements & Calculations MV E max beulah: MV P1/2t max beulah: Ao V2 max: AI max beulah: 122.9 cm/sec 123.4 cm/sec 224.9 cm/sec 505.2 cm/sec MV A max beulah: MV P1/2t: 40.7 msec Ao max PG: AI max P.0 cm/sec MVA(P1/2t): 5.4 cm2 20.2 mmHg 102.1 mmHg MV E/A: 1.7 MV dec slope: AI dec slope: 236.2 cm/sec2 887.8 cm/sec2 AI P1/2t: MV dec time: 626.6 msec 0.13 sec LV V1 max PG: PA V2 max: PI end-d beulah: TR max beulah: 5.6 mmHg 94.3 cm/sec 129.0 cm/sec 257.4 cm/sec LV V1 max: PA max P.6 mmHg TR max P.5 cm/sec 26.5 mmHg AV P1/2t-pr_phl: MV P1/2t-pr_phl: 626.6 msec 40.7 msec Left Ventricle The left ventricle is normal in size. There is mild to moderate concentric left ventricular hypertrophy. LV EF is 60%. The left ventricular ejection fraction is within normal limits. Doppler measurements suggest normal left ventricular diastolic function. The left ventricular wall motion is normal. There is no thrombus. There is no ASD / VSD 0r PFO seen. Right Ventricle The right ventricle is normal in size and function. Atria The right atrium is normal. The left atrium is mildly dilated. Mitral Valve There is no evidence of mitral valve prolapse. There is no vegetation seen on the mitral valve. There is no mitral valve stenosis. There is a mild amount of mitral regurgitation. Aortic Valve There is no aortic valvular vegetation. There is a peak gradient of 20 mm of Hg. There is mild aortic stenosis. No hemodynamically significant valvular aortic stenosis. There is no LVOT obstruction. There is a mild amount of aortic regurgitation. Tricuspid Valve There is no tricuspid stenosis. There is a mild amount of tricuspid regurgitation. There is mild pulmonary hypertension by echo. RVSP is 32 to 37 mm of Hg , with RA mean of 5 to 10. Pulmonic Valve There is no pulmonic valvular stenosis. There is a trace amount of pulmonic regurgitation. Great Vessels The aortic root is normal size. The inferior vena cava appeared normal and decreased > 50% with respiration (RAP 5-10 mmHg). Effusions Minimal pericardial effusion. There are no echocardiographic or Doppler indications for cardiac tamponade. : COBY DANIEL > Viridiana Li
[2018-07-12] MEDS: ACETAMINOPHEN 325 MG TABLET PO PRN (04:01)
[2018-07-12] MEDS: DIAZEPAM 2 MG TABLET PO SCH ×3 (05:07→21:30)
[2018-07-12] MEDS: CLONIDINE HCL 0.2 MG TABLET PO SCH ×3 (05:07→21:30)
[2018-07-12] MEDS: HYDROCHLOROTHIAZIDE 12.5 MG TABLET PO SCH (09:33)
[2018-07-12] MEDS: LISINOPRIL 10 MG TABLET PO SCH (09:34)
[2018-07-12] MEDS: AMLODIPINE BESYLATE 5 MG TABLET PO SCH (09:34)
[2018-07-12] MEDS: ALBUTEROL SULFATE 0.083% NEB 2.5 MG/3 ML AMPUL NEB PRN (12:58)
[2018-07-12] MEDS: CEFTRIAXONE SODIUM 1,000 MG in DEXTROSE 5%-WATER 50 ML IV SCH (17:42)
[2018-07-12] MEDS: KETOROLAC TROMETHAMINE INJ/PF 30 MG/1 ML SDV IV PRN (17:43)
[2018-07-13] MEDS: KETOROLAC TROMETHAMINE INJ/PF 30 MG/1 ML SDV IV PRN ×3 (01:02→20:43)
[2018-07-13] MEDS: DIAZEPAM 2 MG TABLET PO SCH ×3 (05:43→21:32)
[2018-07-13] MEDS: CLONIDINE HCL 0.2 MG TABLET PO SCH ×3 (05:43→21:32)
[2018-07-13] MEDS: HYDROCHLOROTHIAZIDE 12.5 MG TABLET PO SCH (09:09)
[2018-07-13] MEDS: LISINOPRIL 10 MG TABLET PO SCH (09:09)
[2018-07-13] MEDS: AMLODIPINE BESYLATE 5 MG TABLET PO SCH (09:09)
[2018-07-13 10:56] LABS: ABSOLUTE EOSINOPHILS # (AUTO) 0.2 10^3/uL (0.0-0.6); ABSOLUTE LYMPHOCYTES (AUTO) 0.8 10^3/uL (0.5-4.7); ABSOLUTE NEUT (AUTO) 4.5 10^3/uL (1.7-8.2); BASOPHILS % (AUTO) 0.7 % (0-2); EOSINOPHILS % (AUTO) 2.3 % (0-6); HEMOGLOBIN 11.3 g/dL (13.5-17.0); LYMPHOCYTES % (AUTO) 12.3 % (13-45); MEAN CORPUSCULAR HGB CONC 34.3 g/dL (32.0-36.0); MEAN CORPUSCULAR VOLUME 87 fl (80-97); PLATELET COUNT 342 10^3/uL (150-450); RED BLOOD COUNT 3.78 10^6/uL (4.35-5.55); RED CELL DISTRIBUTION WIDTH 14.5 % (11.5-14.0); SEGMENTED NEUTROPHILS % (AUTO) 68.7 % (42-78); TOTAL CELLS COUNTED % (AUTO) 100 %; WHITE BLOOD COUNT 6.5 10^3/uL (4.0-10.5)
[2018-07-13 11:11] LABS: ANION GAP 12 (5-19); BLOOD UREA NITROGEN 18 mg/dL (7-20); CALCIUM 9.2 mg/dL (8.4-10.2); CARBON DIOXIDE 25 mmol/L (22-30); CHLORIDE 98 mmol/L (98-107); GLUCOSE 112 mg/dL (75-110); POTASSIUM 3.6 mmol/L (3.6-5.0); SODIUM 134.8 mmol/L (137-145)
--- NOTE | 2018-07-13 13:53 | PDOC PROGRESS REPORT ---
Subjective Progress Note for:: 07/12/18 Subjective:: This is a 48 year old male with a past medical history of untreated hypertension, tobacco and alcohol dependence who presented with acute chest pain radiating to the back associated with shortness of breath after smoking crack cocaine. In the ER, he was noted to be severely hypertensive. 07/10: This morning, he appears comfortable and is currently chest pain free. He says his SOB has also improved. Blood pressures have slightly improved but still elevated in the 170 systolic. 07/11: Patient had fever early this morning. He complains of persistent right sided flank/subcostal pain. 07/12: He had fever again this morning aorund 3 am. He says his flank pain has improved. Denies chest pain or SOB. Reason For Visit: HTN URGENCY, CP, COCAINE INTOX Physical Exam Vital Signs: Temp Pulse Resp BP Pulse Ox 98.6 F 79 15 147/101 H 95 07/13/18 11:51 07/13/18 11:51 07/13/18 11:51 07/13/18 11:51 07/13/18 11:51 Intake & Output 07/12/18 07/13/18 07/14/18 06:59 06:59 06:59 Intake Total 1188 1553 Balance 1188 1553 Weight 208 lb 5.389 oz 211 lb 3.245 oz General appearance: PRESENT: no acute distress, well-developed, well-nourished Head exam: PRESENT: atraumatic, normocephalic Eye exam: PRESENT: conjunctiva pink, EOMI, PERRLA. ABSENT: scleral icterus Ear exam: PRESENT: normal external ear exam Mouth exam: PRESENT: moist, tongue midline Neck exam: ABSENT: carotid bruit, JVD, lymphadenopathy, thyromegaly Respiratory exam: PRESENT: clear to auscultation dewayne. ABSENT: rales, rhonchi, wheezes Cardiovascular exam: PRESENT: RRR. ABSENT: diastolic murmur, rubs, systolic murmur Pulses: PRESENT: normal dorsalis pedis pul GI/Abdominal exam: PRESENT: normal bowel sounds, soft. ABSENT: distended, guarding, mass, organolmegaly, rebound, tenderness Rectal exam: PRESENT: deferred Neurological exam: PRESENT: alert, awake, oriented to person, oriented to place, oriented to time, oriented to situation, CN II-XII grossly intact. ABSENT: motor sensory deficit Results Laboratory Results: 07/13/18 10:23 07/13/18 10:23 07/13/18 07/13/18 10:23 10:23 WBC 6.5 RBC 3.78 L Hgb 11.3 L Hct 33.0 L MCV 87 MCH 30.0 MCHC 34.3 RDW 14.5 H Plt Count 342 Seg Neutrophils % 68.7 Lymphocytes % 12.3 L Monocytes % 16.0 H Eosinophils % 2.3 Basophils % 0.7 Absolute Neutrophils 4.5 Absolute Lymphocytes 0.8 Absolute Monocytes 1.0 Absolute Eosinophils 0.2 Absolute Basophils 0.0 Sodium 134.8 L Potassium 3.6 Chloride 98 Carbon Dioxide 25 Anion Gap 12 BUN 18 Creatinine 0.92 Est GFR ( Amer) > 60 Est GFR (Non-Af Amer) > 60 Glucose 112 H Calcium 9.2 07/09/18 07/09/18 07/09/18 18:00 18:00 20:40 Creatine Kinase 167 CK-MB (CK-2) 0.75 Troponin I 0.037 0.038 07/09/18 07/10/18 07/11/18 20:40 05:04 13:30 Creatine Kinase 129 CK-MB (CK-2) Troponin I 0.042 0.022 Impressions: Chest X-Ray 07/09/18 17:08 IMPRESSION: Cardiomegaly with mild pulmonary edema. Cannot exclude limited left lower lobe pneumonia. Chest/Abdomen CTA 07/09/18 20:07 IMPRESSION: 1. No acute pulmonary embolism. 2. Trace right pleural effusion with compressive atelectasis in the right lower lobe. 3. Cardiomegaly with small pericardial effusion. Abdomen/Pelvis CT 07/11/18 17:33 IMPRESSION: No acute disease. Mild right pleural effusion. Mild pericardial effusion. Assessment and Plan - Diagnosis (1) Chest pain Qualifiers: Chest pain type: unspecified Qualified Code(s): R07.9 - Chest pain, unspecified Is this a current diagnosis for this admission?: Yes Plan: Likely related to cocaine use. EKG shows some T wave inversions. Echo pending. Mildly elevated troponin possibly from demand from cocaine use. 07/11: Resolved. (2) Hypertensive urgency Is this a current diagnosis for this admission?: Yes Plan: Continue amlodipine, lisinopril, and HCTZ. (3) Elevated troponin Is this a current diagnosis for this admission?: Yes Plan: Mildly elevated troponin possibly from demand from cocaine use. Troponin has significantly trended down. (4) Fever Is this a current diagnosis for this admission?: Yes Plan: Will check a UA and blood culture. Unable to appreciate a murmur on exam. Will empirically start Rocephin until cultures are back. 07/12: Blood culture pending. (5) Hypokalemia Is this a current diagnosis for this admission?: Yes Plan: Resolved. - Time Time Spent with patient: 25-34 minutes
--- NOTE | 2018-07-13 13:56 | PDOC PROGRESS REPORT ---
Subjective Progress Note for:: 07/13/18 Subjective:: This is a 48 year old male with a past medical history of untreated hypertension, tobacco and alcohol dependence who presented with acute chest pain radiating to the back associated with shortness of breath after smoking crack cocaine. In the ER, he was noted to be severely hypertensive. 07/10: This morning, he appears comfortable and is currently chest pain free. He says his SOB has also improved. Blood pressures have slightly improved but still elevated in the 170 systolic. 07/11: Patient had fever early this morning. He complains of persistent right sided flank/subcostal pain. 07/12: He had fever again this morning aorund 3 am. He says his flank pain has improved. Denies chest pain or SOB. 07/13: No acute event overnight. No recurrence of fever so far. He says he feels better and flank pain is minimal. Await final culture report. Reason For Visit: HTN URGENCY, CP, COCAINE INTOX Physical Exam Vital Signs: Temp Pulse Resp BP Pulse Ox 98.6 F 79 15 147/101 H 95 07/13/18 11:51 07/13/18 11:51 07/13/18 11:51 07/13/18 11:51 07/13/18 11:51 Intake & Output 07/12/18 07/13/18 07/14/18 06:59 06:59 06:59 Intake Total 1188 1553 Balance 1188 1553 Weight 208 lb 5.389 oz 211 lb 3.245 oz General appearance: PRESENT: no acute distress, well-developed, well-nourished Head exam: PRESENT: atraumatic, normocephalic Eye exam: PRESENT: conjunctiva pink, EOMI, PERRLA. ABSENT: scleral icterus Ear exam: PRESENT: normal external ear exam Mouth exam: PRESENT: moist, tongue midline Neck exam: ABSENT: carotid bruit, JVD, lymphadenopathy, thyromegaly Respiratory exam: PRESENT: clear to auscultation dewayne. ABSENT: rales, rhonchi, wheezes Cardiovascular exam: PRESENT: RRR. ABSENT: diastolic murmur, rubs, systolic murmur Pulses: PRESENT: normal dorsalis pedis pul GI/Abdominal exam: PRESENT: normal bowel sounds, soft. ABSENT: distended, guarding, mass, organolmegaly, rebound, tenderness Rectal exam: PRESENT: deferred Extremities exam: PRESENT: full ROM. ABSENT: calf tenderness, clubbing, pedal edema Neurological exam: PRESENT: alert, awake, oriented to person, oriented to place, oriented to time, oriented to situation, CN II-XII grossly intact. ABSENT: motor sensory deficit Results Laboratory Results: 07/13/18 10:23 07/13/18 10:23 07/13/18 07/13/18 10:23 10:23 WBC 6.5 RBC 3.78 L Hgb 11.3 L Hct 33.0 L MCV 87 MCH 30.0 MCHC 34.3 RDW 14.5 H Plt Count 342 Seg Neutrophils % 68.7 Lymphocytes % 12.3 L Monocytes % 16.0 H Eosinophils % 2.3 Basophils % 0.7 Absolute Neutrophils 4.5 Absolute Lymphocytes 0.8 Absolute Monocytes 1.0 Absolute Eosinophils 0.2 Absolute Basophils 0.0 Sodium 134.8 L Potassium 3.6 Chloride 98 Carbon Dioxide 25 Anion Gap 12 BUN 18 Creatinine 0.92 Est GFR ( Amer) > 60 Est GFR (Non-Af Amer) > 60 Glucose 112 H Calcium 9.2 07/09/18 07/09/18 07/09/18 18:00 18:00 20:40 Creatine Kinase 167 CK-MB (CK-2) 0.75 Troponin I 0.037 0.038 07/09/18 07/10/18 07/11/18 20:40 05:04 13:30 Creatine Kinase 129 CK-MB (CK-2) Troponin I 0.042 0.022 Impressions: Chest X-Ray 07/09/18 17:08 IMPRESSION: Cardiomegaly with mild pulmonary edema. Cannot exclude limited left lower lobe pneumonia. Chest/Abdomen CTA 07/09/18 20:07 IMPRESSION: 1. No acute pulmonary embolism. 2. Trace right pleural effusion with compressive atelectasis in the right lower lobe. 3. Cardiomegaly with small pericardial effusion. Abdomen/Pelvis CT 07/11/18 17:33 IMPRESSION: No acute disease. Mild right pleural effusion. Mild pericardial effusion. Assessment and Plan - Diagnosis (1) Chest pain Qualifiers: Chest pain type: unspecified Qualified Code(s): R07.9 - Chest pain, unspecified Is this a current diagnosis for this admission?: Yes Plan: Likely related to cocaine use. EKG shows some T wave inversions. Echo pending. Mildly elevated troponin possibly from demand from cocaine use. Resolved. (2) Hypertensive urgency Is this a current diagnosis for this admission?: Yes Plan: 07/13: Blood pressures have improved in the 130-140 systolic. Continue amlodipine, lisinopril, and HCTZ. (3) Elevated troponin Is this a current diagnosis for this admission?: Yes Plan: Mildly elevated troponin possibly from demand from cocaine use. Troponin has significantly trended down. (4) Fever Is this a current diagnosis for this admission?: Yes Plan: Will check a UA and blood culture. Unable to appreciate a murmur on exam. Will empirically start Rocephin until cultures are back. Await final blood culture report. (5) Hypokalemia Is this a current diagnosis for this admission?: Yes Plan: Resolved. (6) Cocaine use Is this a current diagnosis for this admission?: Yes Plan: Counseled on substance use cessation. - Time Time Spent with patient: 15-24 minutes
[2018-07-13] MEDS: CEFTRIAXONE SODIUM 1,000 MG in DEXTROSE 5%-WATER 50 ML IV SCH (17:11)
[2018-07-14] MEDS: KETOROLAC TROMETHAMINE INJ/PF 30 MG/1 ML SDV IV PRN (03:08)
[2018-07-14] MEDS: DIAZEPAM 2 MG TABLET PO SCH (05:30)
[2018-07-14] MEDS: CLONIDINE HCL 0.2 MG TABLET PO SCH (05:30)
--- NOTE | 2018-07-14 08:31 | RADIOLOGY REPORT (SQ) ---
EXAM DESCRIPTION: CHEST SINGLE VIEW COMPLETED DATE/TIME: 07/14/2018 7:41 am REASON FOR STUDY: assess for pleural eff or infiltrates COMPARISON: 07/09/2018. CT abdomen including the lung bases 07/11/2018. NUMBER OF VIEWS: One view. TECHNIQUE: Single frontal radiographic view of the chest acquired. LIMITATIONS: None. FINDINGS: LUNGS AND PLEURA: Basilar lung aeration is slightly worse. This includes left base and mi nimal new opacity at the right base. CT has demonstrated a right effusion. This is not well seen ra diographically. Upper lung moncada are clear. No pneumothorax. MEDIASTINUM AND HILAR STRUCTURES: No masses. Contour normal. HEART AND VASCULAR STRUCTURES: Cardiomegaly. BONES: No acute findings. HARDWARE: None in the chest. OTHER: No other significant finding. IMPRESSION: 1. Diminished basilar aeration bilaterally. Radiograph looks slightly worse compared to 07/09/2018. TECHNICAL DOCUMENTATION: JOB ID: [id number] Only [employer]- All Rights Reserved Reading location - IP/workstation name: [email or web address]
[2018-07-14] MEDS: HYDROCHLOROTHIAZIDE 12.5 MG TABLET PO SCH (09:32)
[2018-07-14] MEDS: LISINOPRIL 10 MG TABLET PO SCH (09:33)
[2018-07-14] MEDS: AMLODIPINE BESYLATE 5 MG TABLET PO SCH (09:33)
[2018-07-14 11:45] VITALS: BP 142/104
--- NOTE | 2018-07-14 16:42 | PDOC DISCHARGE SUMMARY ---
General - Admit/Disc Date/PCP Admission Date/Primary Care Provider: 07/11/18 15:37 Discharge Date: 07/14/18 - Additional Information Resuscitation Status: Full Code Discharge Diet: As Tolerated, Cardiac Discharge Activity: Activity As Tolerated Prescriptions: Amlodipine Besylate [Norvasc 5 mg Tablet] 5 mg PO DAILY #30 tablet Clonidine HCl [Catapres 0.2 mg Tablet] 0.2 mg PO Q8 #90 tablet Hydrochlorothiazide [Hydrodiuril 12.5 mg Tablet] 12.5 mg PO DAILY #30 tablet Lisinopril [Prinivil 10 mg Tablet] 20 mg PO DAILY #60 tablet Home Medications: Amlodipine Besylate [Norvasc 5 mg Tablet] 5 mg PO DAILY #30 tablet 07/14/18 Clonidine HCl [Catapres 0.2 mg Tablet] 0.2 mg PO Q8 #90 tablet 07/14/18 Hydrochlorothiazide [Hydrodiuril 12.5 mg Tablet] 12.5 mg PO DAILY #30 tablet 07/14/18 Lisinopril [Prinivil 10 mg Tablet] 20 mg PO DAILY #60 tablet 07/14/18 History of Present Illness History of Present Illness: HERACLIO HERRERA is a 48 year old male with past medical history of untreated hypertension, tobacco and alcohol dependence. Patient presents with 12 hours of sharp stabbing retrosternal chest pain radiating to the back associated with shortness of breath occurring moments after smoking crack cocaine. His symptoms of persisted prompting evaluation in the emergency room was found to have hypertensive urgency in the 200 systolic range, CT with small pericardial and pl eural effusion. He receives clonidine, Ativan and referred to the hospitalist for admission. Patient denies current chest pain. Hospital Course Hospital Course: His chest pain resolved and his troponins were unremarkable. His echocardiogram showed some moderate pulmonary hypertension but was otherwise unremarkable. He was on lisinopril and HCTZ and we continue that, and we added Norvasc and clonidine, and achieved fairly good blood pressure control with that. He was not interested in doing a stress test. He acknowledged the dangers of using cocaine and said he was going to give it up. There was some concern about a temperature at one point he was placed empirically on antibiotics but he is showing no signs of any sort of systemic infection. His labs and examination were reassuring and he was discharged in good condition. Physical Exam Vital Signs: Temp Pulse Resp BP Pulse Ox 97.2 F 70 22 H 142/104 H 98 07/14/18 11:42 07/14/18 11:42 07/14/18 11:42 07/14/18 11:42 07/14/18 11:42 Intake & Output 07/13/18 07/14/18 07/15/18 06:59 06:59 06:59 Intake Total 1553 1467 Balance 1553 1467 Weight 95.8 kg 97.8 kg General appearance: PRESENT: no acute distress, well-developed, well-nourished Respiratory exam: PRESENT: clear to auscultation dewayne. ABSENT: rales, rhonchi, wheezes Cardiovascular exam: PRESENT: RRR. ABSENT: diastolic murmur, rubs, systolic murmur Pulses: PRESENT: normal dorsalis pedis pul GI/Abdominal exam: PRESENT: normal bowel sounds, soft. ABSENT: distended, guarding, mass, organolmegaly, rebound, tenderness Extremities exam: PRESENT: full ROM. ABSENT: calf tenderness, clubbing, pedal edema Neurological exam: PRESENT: alert, awake, oriented to person, oriented to place, oriented to time, oriented to situation Results Laboratory Results: 07/13/18 10:23 07/13/18 10:23 07/09/18 07/09/18 07/09/18 18:00 18:00 20:40 Creatine Kinase 167 CK-MB (CK-2) 0.75 Troponin I 0.037 0.038 07/09/18 07/10/18 07/11/18 20:40 05:04 13:30 Creatine Kinase 129 CK-MB (CK-2) Troponin I 0.042 0.022 Impressions: Chest/Abdomen CTA 07/09/18 20:07 IMPRESSION: 1. No acute pulmonary embolism. 2. Trace right pleural effusion with compressive atelectasis in the right lower lobe. 3. Cardiomegaly with small pericardial effusion. Abdomen/Pelvis CT 07/11/18 17:33 IMPRESSION: No acute disease. Mild right pleural effusion. Mild pericardial effusion. Chest X-Ray 07/14/18 07:00 IMPRESSION: 1. Diminished basilar aeration bilaterally. Radiograph looks slightly worse compared to 07/09/2018. Qualifiers - * PATIENT BEING DISCHARGED WITH ANY OF THE FOLLOWING DIAGNOSIS: No
== END 2018-07-14 12:30 | disposition home or self-care (01) | DRG 305 ==
LOC: ER 16:44 → EH 22:47 → 4W 07-10 04:51 → OBSVTOIN 07-11 15:37 → 4W 07-13 15:42
PROVIDERS: ADMIT Internal Medicine; ATTEND Internal Medicine
PROC: 3E0F73Z Introduction of Anti-inflammatory into Respiratory Tract, Via Natural or Artificial Opening (ICD-10-PCS; principal; 2018-07-11)
DX: I16.0 Hypertensive urgency (principal); E87.6 Hypokalemia; F10.20 Alcohol dependence, uncomplicated; F14.929 Cocaine use, unspecified with intoxication, unspecified; F17.210 Nicotine dependence, cigarettes, uncomplicated; I10 Essential (primary) hypertension; Z91.19 Patient's noncompliance with other medical treatment and regimen; Z82.49 Family history of ischemic heart disease and other diseases of the circulatory system
CPT/HCPCS: 36415; 71045; 71046; 71275; 74176; 80048; 80053; 80307; 81001; 82550; 82553; 83735; 84132; 84484; 85025; 85379; 85652; 87040; 93005; 93010; 93306; 94640; 94799; 96361; 96374; 96375; 96376; 99291; 99406; J0360; J0696; J1885; J2060; J2270; J2405; J3480; J3490; J7120; J7620

== ENCOUNTER 2019-08-25 16:59 | Observation (INO) | payer SELFPAY ==
[2019-08-25] MEDS ORDERED: ASPIRIN 81 MG TABLET, CHEWABLE PO ONE (17:05)
--- NOTE | 2019-08-25 17:10 | ER Document Report ---
ED Medical Screen (RME) - General Chief Complaint: Chest Pain Stated Complaint: CHEST PAIN Time Seen by Provider: 08/25/19 17:03 Mode of Arrival: Ambulatory Information source: Patient Notes: 49-year-old male presented to ED for complaint of chest pain x3 days. He states this is been pretty bad. He states he has not had any sweating or shortness of breath. He does state that it hurt real bad when he took a deep breath. Is alert oriented respirations regular and unlabored speaking in full sentences. He does smoke 1/2 pack a day. He does work on hardwood floors. Has a history of high blood pressure I have greeted and performed a rapid initial assessment of this patient. A comprehensive ED assessment and evaluation of the patient, analysis of test results and completion of medical decision making process will be conducted by an additional ED providers. TRAVEL OUTSIDE OF THE [place] IN LAST 30 DAYS: No - Related Data Allergies/Adverse Reactions: No Known Allergies Allergy (Verified 07/09/18 16:47) Past Medical History - Social History Family history: Hypertension - Past Medical History Cardiac Medical History: Reports: Hx Hypertension Renal/ Medical History: Denies: Hx Peritoneal Dialysis
[2019-08-25] MEDS ORDERED: NITROGLYCERIN/D5W 50 MG/250 ML RTUINJ IV PRN (17:48)
--- NOTE | 2019-08-25 17:49 | RADIOLOGY REPORT (SQ) ---
EXAM DESCRIPTION: CHEST 2 VIEWS IMAGES COMPLETED DATE/TIME: 08/25/2019 5:35 pm REASON FOR STUDY: chest pain for last 3 days COMPARISON: 07/14/2018 EXAM PARAMETERS: NUMBER OF VIEWS: two views TECHNIQUE: Digital Frontal and Lateral radiographic views of the chest acquired. RADIATION DOSE: NA LIMITATIONS: none FINDINGS: LUNGS AND PLEURA: No opacities, masses or pneumothorax. No pleural effusion. MEDIASTINUM AND HILAR STRUCTURES: No masses or contour abnormalities. HEART AND VASCULAR STRUCTURES: The heart size is borderline. There is no pulmonary edema. BONES: No acute findings. HARDWARE: None in the chest. OTHER: No other significant finding. IMPRESSION: Borderline heart size with no pulmonary edema. TECHNICAL DOCUMENTATION: JOB ID: [id number] 2010 [employer]- All Rights Reserved Reading location - IP/workstation name: [email or web address]
[2019-08-25 18:03] LABS: NT PRO BNP 14 pg/mL (<125)
[2019-08-25 18:04] LABS: TROPONIN I < 0.012 ng/mL
[2019-08-25 18:04] LABS: ABSOLUTE BASOPHILS # (AUTO) 0.1 10^3/uL (0.0-0.2); ABSOLUTE EOSINOPHILS # (AUTO) 0.1 10^3/uL (0.0-0.6); ABSOLUTE LYMPHOCYTES (AUTO) 1.6 10^3/uL (0.5-4.7); ABSOLUTE MONOCYTES (AUTO) 1.6 10^3/uL (0.1-1.4); BASOPHILS % (AUTO) 0.9 % (0-2); HEMATOCRIT 36.9 % (37.9-51.0); HEMOGLOBIN 12.8 g/dL (13.5-17.0); LYMPHOCYTES % (AUTO) 15.3 % (13-45); MEAN CORPUSCULAR HEMOGLOBIN 30.4 pg (27.0-33.4); MEAN CORPUSCULAR HGB CONC 34.6 g/dL (32.0-36.0); MEAN CORPUSCULAR VOLUME 88 fl (80-97); MONOCYTES % (AUTO) 15.5 % (3-13); PLATELET COUNT 245 10^3/uL (150-450); RED CELL DISTRIBUTION WIDTH 16.2 % (11.5-14.0); SEGMENTED NEUTROPHILS % (AUTO) 67.3 % (42-78); TOTAL CELLS COUNTED % (AUTO) 100 %; WHITE BLOOD COUNT 10.4 10^3/uL (4.0-10.5)
[2019-08-25 18:17] LABS: ALBUMIN 4.2 g/dL (3.5-5.0); ALKALINE PHOSPHATASE 92 U/L (38-126); ANION GAP 9 (5-19); ASPARTATE AMINO TRANSFERASE 50 U/L (17-59); BILIRUBIN,TOTAL 0.5 mg/dL (0.2-1.3); BLOOD UREA NITROGEN 18 mg/dL (7-20); CALCIUM 9.2 mg/dL (8.4-10.2); CARBON DIOXIDE 27 mmol/L (22-30); CHLORIDE 99 mmol/L (98-107); CREATINE KINASE 356 U/L (55-170); GLUCOSE 126 mg/dL (75-110); POTASSIUM 3.5 mmol/L (3.6-5.0); TOTAL PROTEIN 7.5 g/dL (6.3-8.2)
--- NOTE | 2019-08-25 19:02 | ER Document Report ---
ED Cardiac - General Chief Complaint: Chest Pain Stated Complaint: CHEST PAIN Time Seen by Provider: 08/25/19 17:03 Primary Care Provider: CARRIE JASON MD [Primary Care Provider] - Follow up as needed Mode of Arrival: Ambulatory Information source: Patient TRAVEL OUTSIDE OF THE [place] IN LAST 30 DAYS: No - HPI Notes: Patient presents with chest pain. Patient states for the last 2 days he has had flulike symptoms. He has had fever chills with aches and sweating. He is also had some cough. He states today he does not had flulike symptoms but he did have some substernal chest pain. He states initially it was sharp and severe. He states while he was getting dressed to come here which was in about an hour before arrival the pain went away and on arrival he no longer has the pain. Since he has been here he said the pain occasionally will come back to the level of a 1 out of 10 but it is essentially gone now. He states he has never had nausea today. No sweating today. No shortness of breath today. He denies any known covert exposures. The chest pain was substernal and sharp. It did not radiate. Nothing made it better or worse. It was intermittent. It was moderate in intensity. He denies any previous history of myocardial infarction or coronary artery disease. He states he is never had a heart catheterization. He states he has not had any recent use of cocaine or illicit drugs other than marijuana. - Related Data Allergies/Adverse Reactions: No Known Allergies Allergy (Verified 07/09/18 16:47) Past Medical History - General Information source: Patient - Social History Smoking Status: Current Every Day Smoker Frequency of alcohol use: None Drug Abuse: None Family History: CAD, Hypertension Patient has homicidal ideation: No - Past Medical History Cardiac Medical History: Reports: Hx Hypertension Renal/ Medical History: Denies: Hx Peritoneal Dialysis Review of Systems - Review of Systems Constitutional: Chills, Fever, Malaise, Weakness Cardiovascular: Chest pain, Palpitations Respiratory: Cough, Short of breath -: Yes All other systems reviewed and negative Physical Exam - Vital signs Vitals: Temp 99.3 F 08/25/19 17:03 Interpretation: Hypertensive - General General appearance: Appears well, Alert - HEENT Head: Normocephalic, Atraumatic Eyes: Normal Pupils: PERRL - Respiratory Respiratory status: No respiratory distress Chest status: Nontender Breath sounds: Normal Chest palpation: Normal - Cardiovascular Rhythm: Regular Heart sounds: Normal auscultation Murmur: No - Abdominal Inspection: Normal Distension: No distension Bowel sounds: Normal Tenderness: Nontender Organomegaly: No organomegaly - Back Back: Normal, Nontender - Extremities General upper extremity: Normal inspection, Nontender, Normal color, Normal ROM, Normal temperature General lower extremity: Normal inspection, Nontender, Normal color, Normal ROM, Normal temperature, Normal weight bearing. No: Stacey's sign - Neurological Neuro grossly intact: Yes Cognition: Normal Orientation: AAOx4 [place] Coma Scale Eye Opening: Spontaneous [place] Coma Scale Verbal: Oriented [place] Coma Scale Motor: Obeys Commands [place] Coma Scale Total: 15 Speech: Normal Motor strength normal: LUE, RUE, LLE, RLE Sensory: Normal - Psychological Associated symptoms: Normal affect, Normal mood - Skin Skin Temperature: Warm Skin Moisture: Dry Skin Color: Normal Course - Re-evaluation Re-evalutation: 08/25/19 19:02 Patient presented with chest pain that essentially had resolved upon arrival. Patient was immediately treated with aspirin and a nitro drip at a very minimal dose. He states he has no pain now. The initial EKG was reviewed by Dr. Bess who was concerned it may indicate an acute WA. I then had EKG reviewed by [facility] enterprise application analyst at [facility] who felt it was indicative of pericarditis. Pt has had flu-like symptoms and does have fever of 101. pt now pain free and has been for 2 hrs here. first set of enzymes negative. Dr. Bess stated he felt the best treatment for the patient was to be at an institution where intervention was possible if the need arises. [facility] was called back and I spoke with Dr. Espino who stated he did not feel pt needed to be transferred and that pt could be treated here appropriately. Discussed again with Dr. Bess and [facility]. 08/25/19 19:14 08/25/19 19:27 pt rechecked at 1925. on phone, smiling, says no pain. febrile now at 101 but rest of vitals stable. awaiting call from [facility]. 08/25/19 20:48 Dr. Bess came to evaluate patient. He performed an ultrasound of the heart at bedside. He feels that patient is stable for admission here and observation. He is asked me to discuss the case with the hospitalist. - Vital Signs Vital signs: Temp Pulse Resp BP Pulse Ox 101 F H 90 29 H 128/100 H 100 08/25/19 18:04 08/25/19 17:13 08/25/19 19:31 08/25/19 19:31 08/25/19 19:31 - Laboratory Result Diagrams: 08/25/19 17:33 08/25/19 17:33 Laboratory results interpreted by me: 08/25/19 08/25/19 17:33 17:33 RBC 4.20 L Hgb 12.8 L Hct 36.9 L RDW 16.2 H [place] % (Auto) 15.5 H Absolute Monos (auto) 1.6 H Sodium 134.6 L Potassium 3.5 L Glucose 126 H ALT 87 H Creatine Kinase 356 H - Diagnostic Test Radiology reviewed: Image reviewed, Reports reviewed - EKG Interpretation by Me EKG shows normal: Sinus rhythm Rate: Normal - 86 Rhythm: NSR [place]/QRS: No: Right axis deviation, Left axis deviation When compared to previous EKG there are: Changes noted, Other - Compared to previous EKG patient does have some ST elevation with HI depression. This is mainly in 2 3 and aVF. It is not quite 1 box in these leads. He has no other reciprocal depression. Additional EKG results interpreted by me: 08/25/19 19:00 The second EKG was performed at 1741. This EKG shows a sinus rhythm with a rate of 79. The axis is normal. Patient still has the ST elevation with HI depression in 2 3 and aVF. It is still not quite 1 box. It is no different from the previous EKG. - Consults No standard instances Time consulted: 17:30 - I spoke to my enterprise application analyst Dr. Bess. He states that the EKG is concerning for possible STEMI and suggested transfer the patient. I then consulted with the on-call [facility] enterprise application analyst at [facility]. He also reviewed the EKGs and stated that he felt there was most consistent with pericarditis. Discharge - Discharge Clinical Impression: Acute pericarditis Qualifiers: Pericarditis type: infectious Infectious pericarditis etiology: unspecified Qualified Code(s): I30.1 - Infective pericarditis Condition: Fair Disposition: [facility] Admitting Provider: Nathan (Hospitalist) Unit Admitted: Telemetry Referrals: CARRIE JASON MD [Primary Care Provider] - Follow up as needed
--- NOTE | 2019-08-25 19:06 | EKG REPORT ---
SEVERITY:- ABNORMAL ECG - SINUS RHYTHM PROBABLE LEFT ATRIAL ABNORMALITY ST ELEV, INFERIOR LEADS, WITH NO RECIPROCAL ST DEPRESSIONS IN OTHER LEADS, NOT TYPICAL OF STEMI, NEED CLINICAL CORRELATION. : Confirmed by: Azar Gonzales MD 25-Aug-2019 19:05:53
--- NOTE | 2019-08-25 19:07 | EKG REPORT ---
SEVERITY:- ABNORMAL ECG - SINUS RHYTHM ST ELEV, NOT TYPICAL OF STEMI, NEED CLINICAL CORRELATION AND BIOMARKERS TO DX : Confirmed by: Azar Gonzales MD 25-Aug-2019 19:07:03
--- NOTE | 2019-08-25 19:09 | EKG REPORT ---
SEVERITY:- BORDERLINE ECG - SINUS RHYTHM PROBABLE LEFT ATRIAL ABNORMALITY ST ELEV, PROBABLE NORMAL EARLY REPOL PATTERN : Confirmed by: Azar Gonzales MD 25-Aug-2019 19:07:52
[2019-08-25 19:34] LABS: A TYPE INFLUENZA AG NEGATIVE (NEGATIVE); B INFLUENZA AG NEGATIVE (NEGATIVE)
--- NOTE | 2019-08-25 20:56 | PDOC CONSULTATION ---
Consultation Consult Date: 08/25/19 Attending physician:: YOEL PRO Provider Consulted: MONICA JAIN Consult reason:: Chest pain History of Present Illness Admission Date/PCP: CARRIE JASON MD History of Present Illness: HERACLIO HERRERA is a 49 year old male with history of pericardial effusion in the past, current smoker, cocaine use in the past and hypertension who is consulted to our service for evaluation of chest pain. The patient began with chest pain at least 3 days ago which he described as sharp initially and then turned into a substernal pressure. At the same time he had developed fevers and general malaise. Her chest pain continued to persist constantly and progressively worse over the ensuing 3 days until he sought medical attention today. He is currently laying in the emergency room, without any acute distress and no chest pain. The pain did not radiate, was associated with mild shortness of breath but no diaphoresis or palpitations. Physical exam on 08/25/2019: GENERAL: Pleasant and conversational. Oriented x3 with normal mood. Not in acute distress. Well groomed and well developed. HEENT: Normocephalic, atraumatic. Pupils equal. Sclerae anicteric. Oropharynx moist. NECK: No JVD. No carotid bruits. LUNGS: Clear to auscultation bilaterally. Normal respiratory effort without the use of accessory muscles or intercostal retractions. CARDIOVASCULAR: Regular rate and rhythm, normal S1 and S2 without murmurs, rubs, or gallops. PMI not displaced. ABDOMEN: No masses or tenderness to palpation. No bruit. No splenomegaly or hepatomegaly. No abdominal aorta bruit noted. EXTREMITIES: No edema, no cyanosis, no clubbing. +2 pulses femoral and pedal pulses bilaterally. SKIN: No lesions or rashes. MUSCULOSKELETAL: No chest tenderness to palpation. NEUROLOGIC: Nonfocal. No gross sensory or motor deficits bilateral upper or lower extremities. Past Medical History Cardiac Medical History: Reports: Hypertension Social History Smoking Status: Current Every Day Smoker Frequency of Alcohol Use: Heavy Hx Recreational Drug Use: Yes Drugs: Cocaine, Marijuana Hx Prescription Drug Abuse: No Family History Family History: CAD, Hypertension Parental Family History Reviewed: Yes Children Family History Reviewed: Yes Sibling(s) Family History Reviewed.: Yes Medication/Allergy Home Medications: Amlodipine Besylate [Norvasc 5 mg Tablet] 5 mg PO DAILY #30 tablet 07/14/18 Clonidine HCl [Catapres 0.2 mg Tablet] 0.2 mg PO Q8 #90 tablet 07/14/18 Hydrochlorothiazide [Hydrodiuril 12.5 mg Tablet] 12.5 mg PO DAILY #30 tablet 07/14/18 Lisinopril [Prinivil 10 mg Tablet] 20 mg PO DAILY #60 tablet 07/14/18 Allergies/Adverse Reactions: No Known Allergies Allergy (Verified 07/09/18 16:47) Physical Exam Vital Signs: Temp Pulse Resp BP Pulse Ox 101 F H 90 29 H 128/100 H 100 08/25/19 18:04 08/25/19 17:13 08/25/19 19:31 08/25/19 19:31 08/25/19 19:31 Intake & Output 08/24/19 08/25/19 08/26/19 06:59 06:59 06:59 Intake Total 1 Balance 1 Weight 103.8 kg Results Laboratory Results: 08/25/19 17:33 08/25/19 17:33 08/25/19 08/25/19 08/25/19 17:17 17:33 17:33 WBC 10.4 RBC 4.20 L Hgb 12.8 L Hct 36.9 L MCV 88 MCH 30.4 MCHC 34.6 RDW 16.2 H Plt Count 245 Seg Neutrophils % 67.3 Sodium 134.6 L Potassium 3.5 L Chloride 99 Carbon Dioxide 27 Anion Gap 9 BUN 18 Creatinine 1.00 Est GFR ( Amer) > 60 Glucose 126 H Calcium 9.2 Total Bilirubin 0.5 AST 50 Alkaline Phosphatase 92 Total Protein 7.5 Albumin 4.2 TSH 0.91 08/25/19 08/25/19 08/25/19 17:17 17:33 17:33 Creatine Kinase 356 H CK-MB (CK-2) 0.92 Troponin I < 0.012 NT-Pro-B Natriuret Pep 14 Impressions: Chest X-Ray 08/25/19 17:06 IMPRESSION: Borderline heart size with no pulmonary edema. 08/25/19 17:33 08/25/19 17:33 MCV 88 fl (80-97) 08/25/19 17:33 MCH 30.4 pg (27.0-33.4) 08/25/19 17:33 MCHC 34.6 g/dL (32.0-36.0) 08/25/19 17:33 RDW 16.2 % (11.5-14.0) H 08/25/19 17:33 Seg Neutrophils % 67.3 % (42-78) 08/25/19 17:33 Chloride 99 mmol/L (98-107) 08/25/19 17:33 Carbon Dioxide 27 mmol/L (22-30) 08/25/19 17:33 Anion Gap 9 (5-19) 08/25/19 17:33 Est GFR ( Amer) > 60 (>60) 08/25/19 17:33 Glucose 126 mg/dL (75-110) H 08/25/19 17:33 Calcium 9.2 mg/dL (8.4-10.2) 08/25/19 17:33 Total Bilirubin 0.5 mg/dL (0.2-1.3) 08/25/19 17:33 AST 50 U/L (17-59) 08/25/19 17:33 Alkaline Phosphatase 92 U/L (38-126) 08/25/19 17:33 Total Protein 7.5 g/dL (6.3-8.2) 08/25/19 17:33 Albumin 4.2 g/dL (3.5-5.0) 08/25/19 17:33 TSH 0.91 uIU/mL (0.47-4.68) 08/25/19 17:17 08/25/19 08/25/19 08/25/19 17:17 17:33 17:33 Creatine Kinase 356 H CK-MB (CK-2) 0.92 Troponin I < 0.012 NT-Pro-B Natriuret Pep 14 Assessment & Plan - Diagnosis (1) Chest pain Qualifiers: Chest pain type: unspecified Qualified Code(s): R07.9 - Chest pain, unspecified Plan: 49-year-old male with a 3-day history of constant chest pain in the setting of fevers, flulike symptoms and general malaise. His EKG on presentation was concerning for a recent ACS with small Q waves inferiorly and ST elevation localized to the inferior leads however his first troponin was negative even after 3 days of constant chest pain. A bedside echocardiogram performed by myself in the emergency room demonstrated a normal ejection fraction, no focal wall motion abnormalities and a small circumferential pericardial effusion which was hemodynamically insignificant. The patient's presentation is consistent with acute pericarditis and will be treated as such. Recommendations: -Cardiac telemetry. -Formal echocardiogram. -Colchicine 0.6 mg p.o. twice daily. -Anti-inflammatory of your choice. -Dr. Storm Huitron will take over the cardiology service on 08/26/2019. (2) Acute pericarditis Plan: Please see #1 above for recommendations. (3) Hypertension Qualifiers: Hypertension type: essential hypertension Qualified Code(s): I10 - Essential (primary) hypertension Plan: Continue with outpatient medical regimen. Further recommendations per primary team.
[2019-08-25] MEDS ORDERED: KETOROLAC TROMETHAMINE INJ/PF 30 MG/1 ML SDV IV ONE (21:16)
[2019-08-25] MEDS ORDERED: KETOROLAC TROMETHAMINE INJ/PF 30 MG/1 ML SDV IV PRN (21:16)
[2019-08-25] MEDS ORDERED: ACETAMINOPHEN 325 MG TABLET PO PRN (21:18)
[2019-08-25] MEDS ORDERED: IPRATROPIUM/ALBUTEROL 0.5-2.5 MG/3 ML AMPUL NEB PRN (21:18)
[2019-08-25] MEDS ORDERED: MAG HYDROX/AL HYDROX/SIMETH SUSP 30 ML UDCUP PO PRN (21:18)
[2019-08-25] MEDS: DIAZEPAM 2 MG TABLET PO SCH (21:53)
[2019-08-25] MEDS ORDERED: CLONIDINE HCL 0.2 MG TABLET PO ONE (22:00)
--- NOTE | 2019-08-26 03:34 | PDOC H&P ---
History of Present Illness Admission Date/PCP: 08/25/19 21:43 CARRIE JASON MD Patient complains of: Chest pain History of Present Illness: HERACLIO HERRERA is a 49 year old male with a past medical history of hypertension, tobacco, alcohol, cocaine and marijuana. He presents with sharp left-sided retrosternal chest pain exacerbated by movement relieved by rest not associated with shortness of breath nausea vomiting diaphoresis. In the emergency department he has an unremarkable work-up with exception to a EKG with diffuse ST elevation. Cardiac enzymes are undetectable and he is referred to the hospitalist for observation. Patient admits to a viral prodrome 3 or 4 days ago resolving without intervention. He denies current medications, patient is otherwise felt well he denies recent drug use. Past Medical History Cardiac Medical History: Reports: Hypertension Psychiatric Medical History: Reports: Alcohol Dependency, Substance Abuse, Tobacco Dependency Denies: Depression Past Surgical History Past Surgical History: Reports: None Social History Information Source: Patient, [facility] Records Smoking Status: Current Every Day Smoker Cigarettes Packs Per Day: 0.5 Electronic Cigarette use?: No Number of Years Smokin Last Time Smoked: 08/25/2019 Frequency of Alcohol Use: None Hx Recreational Drug Use: Yes Drugs: Cocaine, Marijuana Hx Prescription Drug Abuse: No - Advance Directive Resuscitation Status: Full Code Family History Family History: CAD, Hypertension Parental Family History Reviewed: Yes Children Family History Reviewed: Yes Sibling(s) Family History Reviewed.: Yes Medication/Allergy Home Medications: Amlodipine Besylate [Norvasc 5 mg Tablet] 5 mg PO DAILY #30 tablet 07/14/18 Clonidine HCl [Catapres 0.2 mg Tablet] 0.2 mg PO Q8 #90 tablet 07/14/18 Hydrochlorothiazide [Hydrodiuril 12.5 mg Tablet] 12.5 mg PO DAILY #30 tablet 07/14/18 Lisinopril [Prinivil 10 mg Tablet] 20 mg PO DAILY #60 tablet 07/14/18 Allergies/Adverse Reactions: No Known Allergies Allergy (Verified 07/09/18 16:47) Review of Systems Constitutional: ABSENT: chills, fever(s), headache(s), weight gain, weight loss Eyes: ABSENT: visual disturbances Ears: ABSENT: hearing changes Cardiovascular: ABSENT: chest pain, dyspnea on exertion, edema, orthropnea, palpitations Respiratory: ABSENT: cough, hemoptysis Gastrointestinal: ABSENT: abdominal pain, constipation, diarrhea, hematemesis, h ematochezia, nausea, vomiting Genitourinary: ABSENT: dysuria, hematuria Musculoskeletal: ABSENT: joint swelling Integumentary: ABSENT: rash, wounds Neurological: ABSENT: abnormal gait, abnormal speech, confusion, dizziness, focal weakness, syncope Psychiatric: ABSENT: anxiety, depression, homidical ideation, suicidal ideation Endocrine: ABSENT: cold intolerance, heat intolerance, polydipsia, polyuria Hematologic/Lymphatic: ABSENT: easy bleeding, easy bruising Physical Exam Vital Signs: Temp Pulse Resp BP Pulse Ox 98.8 F 78 17 127/51 H 95 08/25/19 22:44 08/26/19 02:00 08/25/19 22:44 08/25/19 22:44 08/25/19 22:44 Intake & Output 08/24/19 08/25/19 08/26/19 11:59 11:59 11:59 Intake Total 201 Balance 201 Weight 103 kg General appearance: PRESENT: no acute distress, well-developed, well-nourished Head exam: PRESENT: atraumatic, normocephalic Eye exam: PRESENT: conjunctiva pink, EOMI, PERRLA. ABSENT: scleral icterus Ear exam: PRESENT: normal external ear exam Mouth exam: PRESENT: moist, tongue midline Neck exam: ABSENT: carotid bruit, JVD, lymphadenopathy, thyromegaly Respiratory exam: PRESENT: clear to auscultation dewayne. ABSENT: rales, rhonchi, wheezes Cardiovascular exam: PRESENT: RRR, rubs. ABSENT: diastolic murmur, systolic murmur Pulses: PRESENT: normal dorsalis pedis pul Vascular exam: PRESENT: normal capillary refill GI/Abdominal exam: PRESENT: normal bowel sounds, soft. ABSENT: distended, guarding, mass, organolmegaly, rebound, tenderness Rectal exam: PRESENT: deferred Extremities exam: PRESENT: full ROM. ABSENT: calf tenderness, clubbing, pedal edema Neurological exam: PRESENT: alert, awake, oriented to person, oriented to place, oriented to time, oriented to situation, CN II-XII grossly intact. ABSENT: motor sensory deficit Psychiatric exam: PRESENT: appropriate affect, normal mood. ABSENT: homicidal ideation, suicidal ideation Skin exam: PRESENT: dry, intact, warm. ABSENT: cyanosis, rash Results Laboratory Results: 08/25/19 17:33 08/25/19 17:33 08/25/19 08/25/19 08/25/19 17:17 17:33 17:33 WBC 10.4 RBC 4.20 L Hgb 12.8 L Hct 36.9 L MCV 88 MCH 30.4 MCHC 34.6 RDW 16.2 H Plt Count 245 Seg Neutrophils % 67.3 Sodium 134.6 L Potassium 3.5 L Chloride 99 Carbon Dioxide 27 Anion Gap 9 BUN 18 Creatinine 1.00 Est GFR ( Amer) > 60 Glucose 126 H Calcium 9.2 Total Bilirubin 0.5 AST 50 Alkaline Phosphatase 92 Total Protein 7.5 Albumin 4.2 TSH 0.91 08/25/19 08/25/19 08/25/19 17:17 17:33 17:33 Creatine Kinase 356 H CK-MB (CK-2) 0.92 Troponin I < 0.012 NT-Pro-B Natriuret Pep 14 08/25/19 19:33 Creatine Kinase CK-MB (CK-2) Troponin I < 0.012 NT-Pro-B Natriuret Pep Impressions: Chest X-Ray 08/25/19 17:06 IMPRESSION: Borderline heart size with no pulmonary edema. Assessment and Plan - Diagnosis (1) Acute pericarditis Is this a current diagnosis for this admission?: Yes Plan: Toradol and symptomatic management, follow-up cardiac enzymes and 2D echo (2) Chest pain Qualifiers: Chest pain type: unspecified Qualified Code(s): R07.9 - Chest pain, unspecified Is this a current diagnosis for this admission?: Yes Plan: Secondary to #1, follow-up cardiac enzymes (3) Cocaine use Is this a current diagnosis for this admission?: Yes Plan: Valium, avoid beta-enid, follow-up urine drug screen (4) Hypertension Qualifiers: Hypertension type: essential hypertension Qualified Code(s): I10 - Essential (primary) hypertension Is this a current diagnosis for this admission?: Yes Plan: Norvasc, ARB PRN - Time Time Spent with patient: 25-34 minutes - Inpatient Certification Medical Necessity: Need Close Monitoring Due to Risk of Patient Decompensation
[2019-08-26 05:33] LABS: ABSOLUTE BASOPHILS # (AUTO) 0.1 10^3/uL (0.0-0.2); ABSOLUTE EOSINOPHILS # (AUTO) 0.1 10^3/uL (0.0-0.6); ABSOLUTE LYMPHOCYTES (AUTO) 1.7 10^3/uL (0.5-4.7); ABSOLUTE MONOCYTES (AUTO) 1.3 10^3/uL (0.1-1.4); ABSOLUTE NEUT (AUTO) 6.3 10^3/uL (1.7-8.2); BASOPHILS % (AUTO) 0.6 % (0-2); EOSINOPHILS % (AUTO) 1.1 % (0-6); HEMATOCRIT 35.3 % (37.9-51.0); HEMOGLOBIN 12.3 g/dL (13.5-17.0); LYMPHOCYTES % (AUTO) 17.8 % (13-45); MEAN CORPUSCULAR HEMOGLOBIN 30.4 pg (27.0-33.4); MEAN CORPUSCULAR HGB CONC 34.7 g/dL (32.0-36.0); MEAN CORPUSCULAR VOLUME 88 fl (80-97); MONOCYTES % (AUTO) 13.7 % (3-13); PLATELET COUNT 244 10^3/uL (150-450); RED BLOOD COUNT 4.04 10^6/uL (4.35-5.55); RED CELL DISTRIBUTION WIDTH 16.2 % (11.5-14.0); SEGMENTED NEUTROPHILS % (AUTO) 66.8 % (42-78); TOTAL CELLS COUNTED % (AUTO) 100 %; WHITE BLOOD COUNT 9.4 10^3/uL (4.0-10.5)
[2019-08-26 05:46] LABS: ANION GAP 8 (5-19); BLOOD UREA NITROGEN 16 mg/dL (7-20); CALCIUM 9.2 mg/dL (8.4-10.2); CARBON DIOXIDE 28 mmol/L (22-30); CHLORIDE 99 mmol/L (98-107); CREATINE KINASE 292 U/L (55-170); GLUCOSE 127 mg/dL (75-110); POTASSIUM 3.6 mmol/L (3.6-5.0)
[2019-08-26 05:50] LABS: URINE AMPHETAMINES SCREEN NEGATIVE; URINE BARBITURATES SCREEN NEGATIVE; URINE BENZODIAZEPINES SCREEN NEGATIVE; URINE COCAINE SCREEN NEGATIVE; URINE METHADONE SCREEN NEGATIVE; URINE PHENCYCLIDINE SCREEN NEGATIVE
[2019-08-26 05:52] LABS: URINE MARIJUANA (THC) SCREEN UNCONFIRMED POSITIVE
[2019-08-26] MEDS: CLONIDINE HCL 0.2 MG TABLET PO SCH ×2 (05:58→11:07)
[2019-08-26] MEDS: DIAZEPAM 2 MG TABLET PO SCH (05:59)
[2019-08-26] MEDS ORDERED: AMLODIPINE BESYLATE 5 MG TABLET PO SCH (10:00)
[2019-08-26] MEDS ORDERED: (PENDING PHARMACY ID) (Lisinopril/Hydrochlorothiazide [Lisinopril-Hctz 20-12.5 Mg Tab] 1 E PO SCH (10:00)
--- NOTE | 2019-08-26 10:55 | PDOC DISCHARGE SUMMARY ---
Impression - Admit/DC Date/PCP Admission Date/Primary Care Provider: 08/25/19 21:43 CARRIE JASON MD Discharge Date: 08/26/19 - Discharge Diagnosis (1) Acute pericarditis Is this a current diagnosis for this admission?: Yes (2) Hypertension Is this a current diagnosis for this admission?: Yes (3) Hypokalemia Is this a current diagnosis for this admission?: Yes (4) Marijuana use Is this a current diagnosis for this admission?: Yes (5) Cocaine use Is this a current diagnosis for this admission?: No - Additional Information Resuscitation Status: Full Code Discharge Diet: Cardiac Discharge Activity: Activity As Tolerated Referrals: ALBERT ROMAN FNP-C [NO LOCAL MD] - 09/03/19 10:00 am Prescriptions: Colchicine [Colcrys 0.6 mg Tablet] 0.6 mg PO DAILY 7 Days #7 tablet Home Medications: Amlodipine Besylate [Norvasc 5 mg Tablet] 10 mg PO DAILY 08/26/19 Clonidine HCl [Catapres 0.2 mg Tablet] 0.2 mg PO Q12 08/26/19 Clonidine HCl [Catapres 0.2 mg Tablet] 0.2 mg PO Q6 tablet 08/26/19 Colchicine [Colcrys 0.6 mg Tablet] 0.6 mg PO DAILY 7 Days #7 tablet 08/26/19 Lisinopril/Hydrochlorothiazide [Lisinopril-Hctz 20-12.5 mg Tab] 1 each PO BID 08/26/19 History of Present Illiness History of Present Illness: HERACLIO HERRERA is a 49 year old male with a past medical history of hypertension, tobacco, alcohol, cocaine and marijuana. He presents with sharp left-sided retrosternal chest pain exacerbated by movement relieved by rest not associated with shortness of breath nausea vomiting diaphoresis. In the emergency department he has an unremarkable work-up with exception to a EKG with diffuse ST elevation. Cardiac enzymes are undetectable and he is referred to the hospitalist for observation. Patient admits to a viral prodrome 3 or 4 days ago resolving without intervention. He denies current medications, patient is otherwise felt well he denies recent drug use. Hospital Course Hospital Course: Unremarkable hospital course. With anti-inflammatories the patient's pain resolved. Intact lungs anxious to discharge and get back to work. He will be on colchicine after discharge and he will follow-up with his primary care provider. Physical Exam Vital Signs: Temp Pulse Resp BP Pulse Ox 98.7 F 72 17 113/70 96 08/26/19 08:00 08/26/19 08:00 08/26/19 08:00 08/26/19 08:00 08/26/19 08:00 Intake & Output 08/25/19 08/26/19 08/27/19 06:59 06:59 06:59 Intake Total 321 Balance 321 Weight 103 kg General appearance: PRESENT: cooperative, well-developed Respiratory exam: PRESENT: clear to auscultation dewayne, symmetrical, unlabored. ABSENT: rales, rhonchi, tachypnea, wheezes Cardiovascular exam: PRESENT: RRR, +S1, +S2 GI/Abdominal exam: PRESENT: normal bowel sounds, soft. ABSENT: distended, guarding, tenderness Results Laboratory Results: WBC 9.4 10^3/uL (4.0-10.5) 08/26/19 04:53 RBC 4.04 10^6/uL (4.35-5.55) L 08/26/19 04:53 Hgb 12.3 g/dL (13.5-17.0) L 08/26/19 04:53 Hct 35.3 % (37.9-51.0) L 08/26/19 04:53 MCV 88 fl (80-97) 08/26/19 04:53 MCH 30.4 pg (27.0-33.4) 08/26/19 04:53 MCHC 34.7 g/dL (32.0-36.0) 08/26/19 04:53 RDW 16.2 % (11.5-14.0) H 08/26/19 04:53 Plt Count 244 10^3/uL (150-450) 08/26/19 04:53 Lymph % (Auto) 17.8 % (13-45) 08/26/19 04:53 Rapides % (Auto) 13.7 % (3-13) H 08/26/19 04:53 Eos % (Auto) 1.1 % (0-6) 08/26/19 04:53 Baso % (Auto) 0.6 % (0-2) 08/26/19 04:53 Absolute Neuts (auto) 6.3 10^3/uL (1.7-8.2) 08/26/19 04:53 Absolute Lymphs (auto) 1.7 10^3/uL (0.5-4.7) 08/26/19 04:53 Absolute Monos (auto) 1.3 10^3/uL (0.1-1.4) 08/26/19 04:53 Absolute Eos (auto) 0.1 10^3/uL (0.0-0.6) 08/26/19 04:53 Absolute Basos (auto) 0.1 10^3/uL (0.0-0.2) 08/26/19 04:53 Seg Neutrophils % 66.8 % (42-78) 08/26/19 04:53 ESR 18 mm/hr (0-20) 08/25/19 17:33 Sodium 134.9 mmol/L (137-145) L 08/26/19 04:53 Potassium 3.6 mmol/L (3.6-5.0) 08/26/19 04:53 Chloride 99 mmol/L (98-107) 08/26/19 04:53 Carbon Dioxide 28 mmol/L (22-30) 08/26/19 04:53 Anion Gap 8 (5-19) 08/26/19 04:53 BUN 16 mg/dL (7-20) 08/26/19 04:53 Creatinine 0.89 mg/dL (0.52-1.25) 08/26/19 04:53 Est GFR ( Amer) > 60 (>60) 08/26/19 04:53 Est GFR (MDRD) Non-Af > 60 (>60) 08/26/19 04:53 Glucose 127 mg/dL (75-110) H 08/26/19 04:53 Calcium 9.2 mg/dL (8.4-10.2) 08/26/19 04:53 Total Bilirubin 0.5 mg/dL (0.2-1.3) 08/25/19 17:33 Direct Bilirubin 0.0 mg/dL (0.0-0.4) 08/25/19 17:33 Neonat Total Bilirubin Not Reportable 08/25/19 17:33 Neonat Direct Bilirubin Not Reportable 08/25/19 17:33 Neonat Indirect Bili Not Reportable 08/25/19 17:33 AST 50 U/L (17-59) 08/25/19 17:33 ALT 87 U/L (<50) H 08/25/19 17:33 Alkaline Phosphatase 92 U/L (38-126) 08/25/19 17:33 Creatine Kinase 292 U/L (55-170) H 08/26/19 04:53 CK-MB (CK-2) 0.92 ng/mL (<4.55) 08/25/19 17:33 Troponin I < 0.012 ng/mL 08/26/19 04:53 NT-Pro-B Natriuret Pep 14 pg/mL (<125) 08/25/19 17:17 Total Protein 7.5 g/dL (6.3-8.2) 08/25/19 17:33 Albumin 4.2 g/dL (3.5-5.0) 08/25/19 17:33 TSH 0.91 uIU/mL (0.47-4.68) 08/25/19 17:17 Urine Opiates Screen NEGATIVE 08/26/19 04:45 Urine Methadone Screen NEGATIVE 08/26/19 04:45 Ur Barbiturates Screen NEGATIVE 08/26/19 04:45 Ur Phencyclidine Scrn NEGATIVE 08/26/19 04:45 Ur Amphetamines Screen NEGATIVE 08/26/19 04:45 U Benzodiazepines Scrn NEGATIVE 08/26/19 04:45 Urine Cocaine Screen NEGATIVE 08/26/19 04:45 U Marijuana (THC) Screen UNCONFIRMED POSITIVE 08/26/19 04:45 Influenza A (Rapid) NEGATIVE (NEGATIVE) 08/25/19 19:07 Influenza B (Rapid) NEGATIVE (NEGATIVE) 08/25/19 19:07 SARS-CoV-2 (PCR) NEGATIVE (NEGATIVE) 08/25/19 18:40 08/25/19 08/25/19 08/25/19 17:17 17:33 19:33 CK-MB (CK-2) 0.92 Troponin I < 0.012 < 0.012 NT-Pro-B Natriuret Pep 14 08/26/19 04:53 CK-MB (CK-2) Troponin I < 0.012 NT-Pro-B Natriuret Pep Impressions: Chest X-Ray 08/25/19 17:06 IMPRESSION: Borderline heart size with no pulmonary edema. Plan Health Concerns: Patient needs to avoid recreational drug use Plan of Treatment: Anti-inflammatories and follow-up with primary care provider Goals: Complete resolution of pericarditis Normalization of EKG Time Spent: Greater than 30 Minutes Stroke Is this a Stroke Patient?: No Acute Heart Failure - Is this a Heart Failure Patient?: No
[2019-08-26] MEDS ORDERED: HYDROCHLOROTHIAZIDE 12.5 MG TABLET PO SCH (11:00)
[2019-08-26] MEDS ORDERED: LISINOPRIL 10 MG TABLET PO SCH ×2 (11:00)
[2019-08-26] MEDS ORDERED: COLCHICINE 0.6 MG TABLET PO SCH (11:00)
[2019-08-26 12:07] VITALS: BP 113/70
--- NOTE | 2019-08-27 11:13 | XCELERA REPORT ---
[address] [address] Transthoracic Echocardiogram Report Name: HERACLIO HERRERA Age: 49 yrs Gender: Male : 1970 Patient Status: Inpatient Patient Location: [address] [place], [place] [address] Study Date: 08/26/2019 08:26 AM History: Chest pain Height: 66 in Weight: 227 lb BSA: 2.1 m2 Procedure: A complete two-dimensional transthoracic echocardiogram was performed (2D, M-mode, spectral and color flow Doppler). The study was technically adequate with some images being suboptimal in quality. Reason For Study: chest pain pericarditid Ordering Physician: ANDREE JO Performed By: Adrienne Garcia Interpretation Summary Left ventricular systolic function is normal. The Ejection Fraction estimate is 55-60% The right ventricle is normal in size and function. There is a trace amount of mitral regurgitation The aortic valve is sclerotic and shows some degree of functional abnormality There is no aortic valve stenosis There is a trace amount of tricuspid regurgitation Small pericardial effusion. There are no echocardiographic or Doppler indications for cardiac tamponade MMode/2D Measurements & Calculations RVDd: 2.9 cm LVIDd: 6.1 cm FS: 35.1 % Ao root diam: 2.9 cm IVSd: 1.1 cm LVIDs: 4.0 cm EDV(Teich): 186.4 ml Ao root area: 6.6 cm2 LVPWd: 1.2 cm ESV(Teich): 68.0 ml EF(Teich): 63.5 % Doppler Measurements & Calculations MV E max beulah: MV dec slope: Ao V2 max: LV V1 max P.5 cm/sec 408.5 cm/sec2 226.5 cm/sec 9.2 mmHg MV A max beulah: MV dec time: Ao max PG: LV V1 mean P.2 cm/sec 0.22 sec 20.5 mmHg 5.8 mmHg MV E/A: 0.88 Ao V2 mean: LV V1 max: 168.9 cm/sec 151.6 cm/sec Ao mean PG: LV V1 mean: 13.1 mmHg 113.4 cm/sec Ao V2 VTI: 43.7 cmLV V1 VTI: 30.2 cm PA V2 max: PI end-d beulah: 104.5 cm/sec 60.3 cm/sec PA max P.4 mmHg Left Ventricle The left ventricle is normal in size. There is moderate to severe concentric left ventricular hypertrophy. Left ventricular systolic function is normal. The Ejection Fraction estimate is 55-60%. Doppler measurements suggest impaired left ventricular relaxation, which is associated with grade I/IV or mild diastolic dysfunction. Right Ventricle The right ventricle is normal in size and function. Atria The right atrium is normal. The left atrial size is normal. Mitral Valve The mitral valve is grossly normal. There is a trace amount of mitral regurgitation. Aortic Valve The aortic valve opens well. The aortic valve is sclerotic and shows some degree of functional abnormality. The aortic valve is mildly calcified. There is no aortic valve stenosis. No aortic regurgitation is present. Tricuspid Valve The tricuspid valve is normal in structure and function. There is a trace amount of tricuspid regurgitation. Tricuspid regurgitation jet envelope not well defined to measure RV systolic pressure accurately. Pulmonic Valve The pulmonic valve is normal in structure and function. There is a trace amount of pulmonic regurgitation. Great Vessels The aortic root is normal size. The inferior vena cava appeared normal and decreased > 50% with respiration (RAP 5-10 mmHg). Effusions Small pericardial effusion. There are no echocardiographic or Doppler indications for cardiac tamponade. : ANDREE JO Anil
== END 2019-08-26 13:02 | disposition home or self-care (01) ==
LOC: ER 16:59 → EH 21:43 → 4S 22:39
PROVIDERS: ADMIT Internal Medicine; ATTEND Hospitalist
DX: I30.9 Acute pericarditis, unspecified (principal); I10 Essential (primary) hypertension; E87.6 Hypokalemia; F12.90 Cannabis use, unspecified, uncomplicated; F14.90 Cocaine use, unspecified, uncomplicated; F17.210 Nicotine dependence, cigarettes, uncomplicated; Z82.49 Family history of ischemic heart disease and other diseases of the circulatory system; Z79.899 Other long term (current) drug therapy; Z03.818 Encounter for observation for suspected exposure to other biological agents ruled out
CPT/HCPCS: 93005; 99285; 96365; 96366; 36415 ×2; 82553; 82550 ×2; 84443; 85025 ×2; 85652; 87635; 80048; 80053; 84484 ×2; 80307; 87804; 83880; 93306; 71046; 93010; J3490 ×3; G0378